=== PATIENT | male | born 1975 | race Caucasian/White ===

== ENCOUNTER 2017-10-24 07:45 | Emergency (ER) | payer OTHER, SELFPAY ==
[2017-10-24 07:46] VITALS: BP 131/103; PULSE 82; RESP 24; O2SAT 99; BMI 27.3
[2017-10-24 08:06] VITALS: BP 142/88; PULSE 63; RESP 20; O2SAT 99
[2017-10-24 08:15] LABS: Basophils % 0.3 % (0.1-2.0); Eosinophils # 0.1 K/mm3 (0.0-0.4); Eosinophils % 0.9 % (0.1-12.0); Hematocrit 49.6 % (42.0-52.0); Hemoglobin 16.6 g/dL (14.1-18.0); Lymphocytes # 1.8 K/mm3 (0.7-4.5); Mean Corpuscular HGB Conc 33.4 g/dL (31.8-35.4); Mean Corpuscular Hemoglobin 30.5 pg (27.0-31.2); Mean Corpuscular Volume 91.3 fl (80-94); Mean Platelet Volume 8.8 fl (7.4-10.4); Monocytes # 0.8 K/mm3 (0.1-1.0); Monocytes % 6.9 % (1.7-9.3); Neutrophils # 8.9 K/mm3 (1.8-7.8); Neutrophils % 76.8 % (37.0-80.0); Platelet Count 272 K/mm3 (142-424); Red Blood Count 5.44 M/mm3 (4.60-6.20); Red Cell Distribution Width 12.7 % (11.5-17.5); White Blood Count 11.6 K/mm3 (4.8-10.8)
[2017-10-24 08:30] VITALS: BP 139/98; PULSE 85; RESP 20; O2SAT 99
--- NOTE | 2017-10-24 08:34 | HMH.EDANX ---
ED Disposition Clinical Impression: Acute anxiety, Suicidal ideation Major depression Qualifiers: Major depression recurrence: single episode Active/Remission status: currently active Major depression episode severity: severe Psychotic features: with psychotic features Qualified Code(s): F32.3 - Major depressive disorder, single episode, severe with psychotic features Disposition: Xfer Psychiatric Hosp Condition on Discharge: Fair Instructions: Anxiety Disorders, Anxiety and Panic Attacks (Alternative Therapy), DI for Atypical Chest Pain, Yoga May Help Reduce Anxiety and Stress Referrals: Prince Prakash [Primary Care Provider] - Forms: Transfer Record - ED Time of Disposition: 11:17 - Critical Care Critical Care Time: No Attestation: On 10/24/17, the high probability of a clinically significant, sudden or life threatening deterioration of the following system(s) required my full and direct attention, intervention and personal management. The time I documented below is in addition to time spent performing reported procedures but includes the following listed in this critical care notation. Medical Decision Making - Medical Records Medical records reviewed: Yes: I reviewed the patient's medical records. Vital Signs: 10/24/17 07:46 10/24/17 08:06 10/24/17 08:30 Temperature Source Temporal Artery Scan Pulse Rate [Right Brachial] 82 63 85 Respiratory Rate 24 20 20 Blood Pressure [Right Arm] 131/103 142/88 139/98 Blood Pressure Mean [Right Arm] 112 106 111 Blood Pressure Source [Right Arm] Automatic Cuff Automatic Cuff Automatic Cuff Blood Pressure Position [Right Arm] Supine Supine Sitting 02 Sat by Pulse Oximetry 99 99 99 Oxygen Delivery Method Room Air Room Air Nasal Cannula Oxygen Flow Rate (LPM) 2 10/24/17 09:25 Temperature Source Pulse Rate [Right Brachial] 57 L Respiratory Rate 18 Blood Pressure [Right Arm] 125/96 Blood Pressure Mean [Right Arm] 105 Blood Pressure Source [Right Arm] Automatic Cuff Blood Pressure Position [Right Arm] Supine 02 Sat by Pulse Oximetry 98 Oxygen Delivery Method Room Air Oxygen Flow Rate (LPM) - Lab Data Lab Results 10/24/17 08:05: WBC 11.6 H, RBC 5.44, Hgb 16.6, Hct 49.6, MCV 91.3, MCH 30.5, MCHC 33.4, RDW 12.7, Plt Count 272, MPV 8.8, Neut % (Auto) 76.8, Lymph % (Auto) 15.0, [place] % (Auto) 6.9, Eos % (Auto) 0.9, Baso % (Auto) 0.3, Neut # (Auto) 8.9 H, Lymph # (Auto) 1.8, [place] # (Auto) 0.8, Eos # (Auto) 0.1, Baso # (Auto) 0.0 10/24/17 08:05: Sodium 139, Potassium 3.8, Chloride 102, Carbon Dioxide 26, Anion Gap 14.8, BUN 12, Creatinine 0.95, Estimated Creat Clear 115, Estimated GFR 87, Est GFR ( Amer) 106, Glucose 114 H, Calcium 8.7, Total Bilirubin 0.6, AST 19, ALT 45, Alkaline Phosphatase 94, Total Creatine Kinase 199, CK-MB (CK-2) 1.3, CK-MB (CK-2) Rel Index 0.7, Troponin I 0.02, Total Protein 8.2, Albumin 4.3, Globulin 3.9 H, Albumin/Globulin Ratio 1.1 10/24/17 08:05: Salicylates 1.1 L, Acetaminophen 0 L, Plasma/Serum Alcohol 0 10/24/17 09:35: Urine Color Yellow, Urine Appearance Clear, Urine pH 7.0, Ur Specific [place] 1.010, Urine Protein Negative, Urine Glucose (UA) Negative, Urine Ketones Negative, Urine Blood Negative, Urine Nitrate Negative, Urine Bilirubin Negative, Urine Urobilinogen 0.2, Ur Leukocyte Esterase Negative, Urine WBC Occasional, Amorphous Sediment 3+, Urine Bacteria 2+ 10/24/17 09:35: Urine Opiates Screen Negative, Ur Barbituates Screen Negative, Ur Phencyclidine Scrn Negative, Ur Amphetamines Screen Negative, U Methamphetamines Scrn Negative, U Benzodiazepines Scrn Negative, Urine Cocaine Screen Negative, U Marijuana (THC) Screen Positive H Result diagrams: 10/24/17 08:05 10/24/17 08:05 Orders (Tests/Meds): ORDERS Category Date Time Status Urine Culture Stat Micro 10/24/17 09:35 Received - ECG Data Tracing #1 I reviewed this ECG and interpreted as documented below: NSR and normal EKG ECG initial impression
[2017-10-24 08:37] LABS: Alanine Aminotransferase 45 U/L (12-78); Albumin Level 4.3 gm/dL (3.4-5.0); Albumin/Globulin Ratio 1.1 (1.1-1.8); Alkaline Phosphatase 94 U/L (46-116); Anion Gap 14.8 mEq/L (5-15); Aspartate Amino Transferase 19 U/L (15-37); Bilirubin,Total 0.6 mg/dL (0.2-1.0); Blood Urea Nitrogen 12 mg/dL (7-18); CKMB Relative Index 0.7 U/L (0-4.0); Calcium 8.7 mg/dL (8.5-10.1); Carbon Dioxide 26 mmol/L (21.0-32.0); Chloride 102 mmol/L (98-107); Creatine Kinase 199 U/L (39-308); Creatine Kinase MB 1.3 mg/ml (0.0-3.6); Creatinine Clearance Estimated 115 mL/min (0-300); Creatinine,Serum 0.95 mg/dL (0.70-1.30); Estimated Glomerular Filt Rate 87 ml/min (>60); GFR (African American) 106 ML/MIN (>60); Globulin 3.9 gm/dl (1.3-3.2); Glucose 114 mg/dL (74-106); Potassium 3.8 mmoL/L (3.5-5.1); Sodium 139 mmol/L (136-145); Total Protein,Serum 8.2 gm/dL (6.4-8.2); Troponin I 0.02 ng/ml (0.00-0.06)
--- NOTE | 2017-10-24 08:47 | ED_ITS ---
ED Disposition Clinical Impression: Acute anxiety, Suicidal ideation Major depression Qualifiers: Major depression recurrence: single episode Active/Remission status: currently active Major depression episode severity: severe Psychotic features: with psychotic features Qualified Code(s): F32.3 - Major depressive disorder, single episode, severe with psychotic features Disposition: Xfer Psychiatric Hosp Condition on Discharge: Fair Instructions: Anxiety Disorders, Anxiety and Panic Attacks (Alternative Therapy ), DI for Atypical Chest Pain, Yoga May Help Reduce Anxiety and Stress Referrals: Prince Prakash [Primary Care Provider] - Forms: Transfer Record - ED Time of Disposition: 11:17 - Critical Care Critical Care Time: No Attestation: On 10/24/17, the high probability of a clinically significant, sudden or life threatening deterioration of the following system(s) required my full and direct attention, intervention and personal management. The time I documented below is in addition to time spent performing reported procedures but includes the following listed in this critical care notation. Medical Decision Making - Medical Records Medical records reviewed: Yes: I reviewed the patient's medical records. Vital Signs: 10/24/17 07:46 10/24/17 08:06 10/24/17 08:30 Temperature Source Temporal Artery Scan Pulse Rate [Right Brachial] 82 63 85 Respiratory Rate 24 20 20 Blood Pressure [Right Arm] 131/103 142/88 139/98 Blood Pressure Mean [Right Arm] 112 106 111 Blood Pressure Source [Right Arm] Automatic Cuff Automatic Cuff Automatic Cuff Blood Pressure Position [Right Arm] Supine Supine Sitting 02 Sat by Pulse Oximetry 99 99 99 Oxygen Delivery Method Room Air Room Air Nasal Cannula Oxygen Flow Rate (LPM) 2 10/24/17 09:25 Temperature Source Pulse Rate [Right Brachial] 57 L Respiratory Rate 18 Blood Pressure [Right Arm] 125/96 Blood Pressure Mean [Right Arm] 105 Blood Pressure Source [Right Arm] Automatic Cuff Blood Pressure Position [Right Arm] Supine 02 Sat by Pulse Oximetry 98 Oxygen Delivery Method Room Air Oxygen Flow Rate (LPM) - Lab Data Lab Results 10/24/17 08:05: WBC 11.6 H, RBC 5.44, Hgb 16.6, Hct 49.6, MCV 91.3, MCH 30.5, MCHC 33.4, RDW 12.7, Plt Count 272, MPV 8.8, Neut % (Auto) 76.8, Lymph % (Auto) 15.0, [place] % (Auto) 6.9, Eos % (Auto) 0.9, Baso % (Auto) 0.3, Neut # (Auto) 8.9 H, Lymph # (Auto) 1.8, [place] # (Auto) 0.8, Eos # (Auto) 0.1, Baso # (Auto) 0.0 10/24/17 08:05: Sodium 139, Potassium 3.8, Chloride 102, Carbon Dioxide 26, Anion Gap 14.8, BUN 12, Creatinine 0.95, Estimated Creat Clear 115, Estimated GFR 87, Est GFR ( Amer) 106, Glucose 114 H, Calcium 8.7, Total Bilirubin 0.6, AST 19, ALT 45, Alkaline Phosphatase 94, Total Creatine Kinase 199, CK-MB ( CK-2) 1.3, CK-MB (CK-2) Rel Index 0.7, Troponin I 0.02, Total Protein 8.2, Albumin 4.3, Globulin 3.9 H, Albumin/Globulin Ratio 1.1 10/24/17 08:05: Salicylates 1.1 L, Acetaminophen 0 L, Plasma/Serum Alcohol 0 10/24/17 09:35: Urine Color Yellow, Urine Appearance Clear, Urine pH 7.0, Ur Specific [place] 1.010, Urine Protein Negative, Urine Glucose (UA) Negative, Urine Ketones Negative, Urine Blood Negative, Urine Nitrate Negative, Urine Bilirubin Negative, Urine Urobilinogen 0.2, Ur Leukocyte Esterase Negative, Urine WBC Occasional, Amorphous Sediment 3+, Urine Bacteria 2+ 10/24/17 09:35: Urine Opiates Screen Negative, Ur Barbituates
[2017-10-24 09:16] LABS: Salicylate 1.1 mg/dL (2.8-20.0)
[2017-10-24 09:24] LABS: Acetaminophen 0 ug/mL (10-30); Ethyl Alcohol 0 mg/dL (0-99)
[2017-10-24 09:25] VITALS: BP 125/96; PULSE 57; RESP 18; O2SAT 98
[2017-10-24 09:42] LABS: Microscopic, Urine URINE MICROSCOPIC (MICROSCOPIC)
[2017-10-24 09:44] LABS: Appearance,Urine CLEAR (Clear); Bilirubin,Urine Negative (Negative); Blood, Urine Negative (Negative); Color,Urine YELLOW (Yellow); Glucose,Urine (UA) Negative (Negative); Ketones,Urine Negative (Negative); Leukocyte Esterase,Urine Negative (Negative); Nitrate,Urine Negative (Negative); Protein,Urine Negative (Negative); Urobilinogen,Urine 0.2 EU/dl (0.2)
[2017-10-24 09:51] LABS: Amphetamine/Metha Screen,Urine Negative ng/mL (<1000); Barbiturates Screen,Urine Negative ng/mL (<200); Benzodiazepines Screen,Urine Negative ng/mL (200); Cannabinoid Screen,Urine Positive ng/mL (<50); Cocaine Screen,Urine Negative ng/g (<300); Methadone Screen,Urine Negative ng/mL (<300); Opiate Screen,Urine Negative ng/mL (<300); Phencyclidine Screen,Urine Negative ng/mL (<25)
[2017-10-24 09:52] LABS: Amorphous Sediment,Urine 3+ /lpf; Bacteria,Urine 2+ /lpf; WBC,Urine Occasional #/hpf (0-3)
--- NOTE | 2017-10-24 09:55 | PC.NURSE ---
Contacting the [facility] r/t transfer request per ER . Spoke with esthetician/spa coordinator, awaiting email for zoom assessment at this time.
--- NOTE | 2017-10-24 10:28 | PC.NURSE ---
Spoke with Silva at [facility] via Zoom assessment on Ipad at this time. Pt is now speaking with Silva via Ipad
--- NOTE | 2017-10-24 10:52 | PC.NURSE ---
Pt finished zoom assessment at this time, I spoke with Silva at this time, states she is going contact their facility psychiatrist r/t assessment on pt. Stated that she had notified pt that she is going to recommend that pt come their facility for evaluation.
--- NOTE | 2017-10-24 11:02 | PC.NURSE ---
Spoke with Silva again at this time, states pt is accepted to their facility in transfer per Dr. Douglas. I asked who to call report to Silva stated that we do not need to call report she will notify receiving staff at facility and give them report. Stated that pt would need to be transported per Ambulance or Police Department r/t pt being a risk to himself.
--- NOTE | 2017-10-24 12:14 | PC.NURSE ---
[facility]PT CALLED FOR TRANSPORT TO THE [facility]. UNABLE TO HAVE AN OFFICER HERE FOR TRANSPORT UNTIL AFTER [address] SWARTZ AND PATIENT INFORMED OF DELAY WELL THE [facility]. TO AWAIT TRANSPORT
[2017-10-24 13:29] VITALS: BP 124/86; PULSE 62; RESP 16; TEMP 37.1; O2SAT 97
== END 2017-10-24 13:31 ==
PROVIDERS: General Practice; Emergency Provider Emergency Medicine; PCP Family Medicine
DX: F41.8 Other specified anxiety disorders (principal); R45.851 Suicidal ideations; F32.3 Major depressive disorder, single episode, severe with psychotic features; Z63.8 Other specified problems related to primary support group; R41.0 Disorientation, unspecified; R07.9 Chest pain, unspecified; Z72.0 Tobacco use
CPT/HCPCS: 80053; 80305; 80329; 81001; 82550; 82553; 84484; 85025; 87086; 93005; 93041; 99285

== ENCOUNTER 2020-07-21 15:44 | Emergency (ER) | payer OTHER, SELFPAY ==
[2020-07-21 15:45] VITALS: BP 112/67; PULSE 56; RESP 12; TEMP 36.6; O2SAT 96; BMI 26.6
--- NOTE | 2020-07-21 15:52 | HMH.EDEYEP ---
ED Disposition Clinical Impression: Corneal foreign body Qualifiers: Encounter type: initial encounter Laterality: left Qualified Code(s): T15.02XA - Foreign body in cornea, left eye, initial encounter Corneal abrasion, left Qualifiers: Encounter type: initial encounter Qualified Code(s): S05.02XA - Injury of conjunctiva and corneal abrasion without foreign body, left eye, initial encounter Disposition: Home, Self-Care Condition on Discharge: Good Instructions: DI for Eye Pain Additional Instructions: Use the eyedrops you were provided as directed (1-2 drops q4hr to L eye). Follow-up with your quality supervisor or underwriting clerk on Friday. Return to the emergency department for worsening vision, increasing pain. Referrals: PCP,No [Primary Care Provider] - - Critical Care Critical Care Time: No Attestation: On 07/21/20, the high probability of a clinically significant, sudden or life threatening deterioration of the following system(s) required my full and direct attention, intervention and personal management. The time I documented below is in addition to time spent performing reported procedures but includes the following listed in this critical care notation. Medical Decision Making - Keith Inquiry Pt receiving controlled substance: No Keith was queried for this patient: No Vital Signs: 07/21/20 15:45 Temperature 97.8 F Temperature Source Temporal Artery Scan Pulse Rate [Right] 56 L Respiratory Rate 12 Blood Pressure [Right Arm] 112/67 Blood Pressure Mean [Right Arm] 82 02 Sat by Pulse Oximetry 96 Medical Decision Narrative: 45yo M evaluated for foreign body to the left eye. See procedure note for full details. Patient has a small corneal abrasion that was treated with antibiotics in the emergency department and he was instructed on proper antibiotic use at home. Patient encouraged to follow-up with optometry/ophthalmology on Friday. He agrees with the plan and voiced understanding. Eye Problem HPI - General Stated complaint: FB L eye Time Seen by Provider: 07/21/20 15:52 Source of Information: Patient - History of Present Illness HPI Narrative: 45yo M without significant past medical history is evaluated emergency department secondary to a foreign body in his left eye. 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 States he has had numerous episodes similar to this. Attempted to irrigate his eye at work but was unsuccessful in removing the foreign body. Denies any other acute injury. Does not wear glasses or contacts. - Related Data Home Medications Medication Instructions Recorded Confirmed No Known Home Medications 10/24/17 10/24/17 Allergies Allergy/AdvReac Type Severity Reaction Status Date / Time No Known Allergies Allergy Verified 10/24/17 07:57 [facility] History - Hepatitis A Screen Attestation statement:: This patient has been screened for Hepatitis A risk factors. Medical History: Denies:: Cancer, Diabetes Mellitus Type 1, Diabetes Mellitus Type 2, MRSA Amputation: No Fractures: No - Social History Smoking Status: Current every day smoker Tobacco Type: cigarettes Alcohol Intake: never ROS Obtained: Yes All systems reviewed & no additional complaints Physical Exam - General General appearance: alert, in no apparent distress - Head Head exam: atraumatic, normocephalic, normal inspection - Expanded Eye Exam Eyelids: left: erythema, bilateral: normal inspection Pupils: Bilateral: regular, round Sclera/Conjunctival: left: injection Anterior chamber: bilateral: normal inspection Posterior chamber: bilateral: deferred Comment: Small, metallic foreign body appreciated to the medial aspect of the left cornea. After foreign body was removed, fluorescein stain was completed. Punctate lesion to the medial cornea at approximately 9 o'clock position. - ENT ENT exam: Present: normal exam - Neck Neck exam: Present: normal inspection, full ROM, trachea midlin
--- NOTE | 2020-07-21 16:54 | PC.NURSE ---
Went to discharge patient to find patient was no where to be found.
[2020-07-21 16:55] VITALS: BP 112/67; PULSE 56; RESP 12; TEMP 36.6; O2SAT 96
== END 2020-07-21 16:56 | disposition home or self-care (01) ==
PROVIDERS: Emergency Provider Family Medicine
DX: T15.02XA Foreign body in cornea, left eye, initial encounter (principal); S05.02XA Injury of conjunctiva and corneal abrasion without foreign body, left eye, initial encounter; F17.210 Nicotine dependence, cigarettes, uncomplicated; W45.8XXA Other foreign body or object entering through skin, initial encounter; Y92.69 Other specified industrial and construction area as the place of occurrence of the external cause; Y99.0 Civilian activity done for income or pay
CPT/HCPCS: 65220; 99282

== ENCOUNTER 2021-07-18 13:34 | Emergency (ER) | payer OTHER, SELFPAY ==
[2021-07-18 13:50] VITALS: BP 143/81; PULSE 67; RESP 16; TEMP 36.7; O2SAT 96; BMI 26.6
--- NOTE | 2021-07-18 14:35 | HMH.EDUTC ---
[facility] [place] Clinical Impression: Sciatica Qualifiers: Laterality: right Qualified Code(s): M54.31 - Sciatica, right side Disposition: Home Health Service Condition on Discharge: Good Instructions: DI for Sciatica Additional Instructions: Go home and rest. It would be best if you rested tomorrow too. No heavy lifting. No twisting. Take the oral medications as directed. The muscle relaxer (cyclobenzaprine--Flexeril) will make you drowsy, so don't drive or operate heavy machinery after taking it. Don't start the oral steroids (medrol dose pack) until tomorrow, since you had the shots in here today. Follow up with your regular doctor. GO TO THE ER FOR ANY WORSENING SYMPTOMS OR CONCERN, ESPECIALLY BOWEL OR BLADDER ISSUES, SADDLE AREA NUMBNESS, FEVER, ETC Prescriptions: Cyclobenzaprine HCl [Cyclobenzaprine 10mg Tab] 10 mg PO BIDP PRN #30 tab PRN Reason: Muscle Spasm Transmission Status: Received by [facility] #[id number] methylPREDNISolone [Medrol] 4 mg PO DIRECTED 6 Days #21 packet Transmission Status: Received by [facility] #[id number] Referrals: Provider,Referral, MD [Primary Care Provider] - Time of Disposition: 15:25 Medical Decision Making - Medical Records Medical records reviewed: No: I reviewed the patient's medical records. - Keith Inquiry Pt receiving controlled substance: No Vital Signs: 07/18/21 13:50 07/18/21 15:02 Temperature 98.1 F 98.1 F Temperature Source Oral Pulse Rate 67 Pulse Rate [Left] 67 Respiratory Rate 16 16 Blood Pressure 143/81 H Blood Pressure [Right Arm] 143/81 H Blood Pressure Mean [Right Arm] 101 02 Sat by Pulse Oximetry 96 - Lab Data Lab results reviewed: Yes: I reviewed the patient's lab results. Orders (Tests/Meds): ED MEDICATIONS Discontinued Medications Generic Name Dose Route Start Last Admin Trade Name Freq PRN Reason Stop Dose Admin Ketorolac Tromethamine 60 mg 07/18/21 14:47 07/18/21 14:57 Ketorolac 60mg/2ml Vial IM 07/18/21 14:48 60 mg ONCE ONE Administration Methylprednisolone Sodium Succinate 125 mg 07/18/21 14:47 07/18/21 14:56 Methylprednisolone Sod Succ 125mg Vial IM 07/18/21 14:48 125 mg ONCE ONE Administration [facility] [place] - General Stated complaint: sciatica pain Time Seen by Provider: 07/18/21 14:35 Mode of Arrival: Ambulatory Source of Information: Patient Limitations: No Limitations Description of Symptoms (Recalled from Triage Doc. by RN): pt c/o of sciatica pain. pt states five yrs ago pt was at the chiropractor when the DrDc broke his L4 while on the table. pt had surgery. however, the past week the pain has been keeping him up at night. HEENT Symptoms (Recalled from RN notes): No Resp Symptoms (Recalled from RN notes): No Skin Symptoms (Recalled from RN notes): No MS Symptoms (Recalled from RN notes): Yes Functional Status (Recalled from RN notes): wnl - History of Present Illness Provider Complaint: He states that he has had low back pain that radiates down his right leg. He has had episodes of this in the past. He denies any recent injury, fall or other injuries. Onset (ago): day(s) - Related Data Previous Rx's Medication Instructions Recorded acyclovir 800 mg tablet 800 mg PO 5XD 7 Days #35 tab 03/08/21 triamcinolone acetonide 0.5 % 1 applic TOPICAL BID PRN #15 g 03/08/21 topical cream Cyclobenzaprine HCl 10 mg PO BIDP PRN #30 tab 07/18/21 [Cyclobenzaprine 10mg Tab] methylPREDNISolone [Medrol] 4 mg PO DIRECTED 6 Days #21 07/18/21 packet Allergies Allergy/AdvReac Type Severity Reaction Status Date / Time No Known Allergies Allergy Verified 03/08/21 18:28 - Worker's Comp Is this a Worker's Comp case?: No [facility] History - Hepatitis A Screen Drug use history?: No High risk sexual behaviors?: No History of sexually transmitted infection?: No Currently employed?: No Childcare worker?: No Do you have indoor plumbing?: Yes Do y
[2021-07-18 15:02] VITALS: BP 143/81; PULSE 67; RESP 16; TEMP 36.7
== END 2021-07-18 15:43 | disposition home health service (06) ==
PROVIDERS: Emergency Provider Nurse Practitioner Family
DX: M54.31 Sciatica, right side (principal); F17.210 Nicotine dependence, cigarettes, uncomplicated
CPT/HCPCS: 96372; 99202; G0463

== ENCOUNTER → 2021-08-10 10:25 | Outpatient (CLI) | payer OTHER, SELFPAY ==
--- NOTE | 2021-08-10 10:30 | MR_ITS ---
PROCEDURE: MR LUMBAR SPINE WO CON CLINICAL INDICATION: DDD Degenerative disc disease, chronic pain COMPARISON: No exams were available for comparison TECHNIQUE: Standard multiplanar multiecho sequences are performed without contrast. 3-D MIP and myelographic images are also rendered and reviewed FINDINGS: Normal alignment. Spinal cord ends at the T12-L1 level. T12-L1: Degenerative disc disease with mild bulging disc. L1-L2: Degenerative disc disease with concentric bulging disc and small central disc protrusion along with facet and ligamentum hypertrophy with bilateral lateral recess narrowing and bilateral foraminal narrowing left greater than right. Canal stenosis is present at this level at 9 mm. Type 1 endplate changes posteriorly L2-L3: Degenerative disc disease with bulging disc which is eccentric toward the right. There is a small right paracentral disc herniation with minimal inferior extrusion. There is severe right lateral recess narrowing and moderate bilateral foraminal narrowing. Facet and ligamentum hypertrophy is noted. There is canal stenosis at 10 mm. Anterior osteophytes with anterior bulging disc also noted. L3-L4: Degenerative disc disease with circumferential bulging disc along with facet and ligamentum hypertrophy with moderate to severe bilateral foraminal narrowing. There is a small central disc protrusion. L4-5: Degenerative disc disease with concentric bulging disc along with facet and ligamentum hypertrophy with canal stenosis, bilateral lateral recess narrowing, and severe right foraminal narrowing and moderate left foraminal narrowing. L5-S1: Mild degenerative disc disease with minimal bulging disc along with facet and ligamentum hypertrophy and mild bilateral foraminal narrowing. 3 cm left renal cyst. IMPRESSION: Abnormal MRI of the lumbar spine with multilevel lumbar spondylosis with bulging discs, disc protrusions, as well as a herniated disc in the right paracentral region at L2-L3. There is resultant varying degrees lateral recess and foraminal narrowing and canal stenosis. Please see above for detailed description at each level. Dictated by: Chris Hernández MD 08/13/2021 09:16 Chris Hernández MD in [place] 08/13/2021 09:16
== END ==
PROVIDERS: PCP Family Medicine; Visit Provider Family Medicine
DX: M51.36 Other intervertebral disc degeneration, lumbar region (principal)
CPT/HCPCS: 72148; 76376

== ENCOUNTER → 2021-11-01 08:44 | Outpatient (POV) | payer OTHER, SELFPAY ==
[2021-11-01 08:58] VITALS: BP 138/85; PULSE 61; RESP 20; TEMP 36.8; O2SAT 96; BMI 26.5
--- NOTE | 2021-11-01 11:31 | HMH.PMCON ---
Assessment and Plan (1) Degenerative disc disease, lumbar Status: Acute Category: Medical Code(s): M51.36 - Other intervertebral disc degeneration, lumbar region (2) Spinal stenosis of lumbar region with neurogenic claudication Status: Acute Category: Medical Code(s): M48.062 - Spinal stenosis, lumbar region with neurogenic claudication (3) Lumbar radiculopathy Status: Acute Category: Medical Code(s): M54.16 - Radiculopathy, lumbar region (4) Restless leg syndrome Status: Acute Category: Medical Code(s): G25.81 - Restless legs syndrome (5) Spondylosis Status: Acute Category: Medical Code(s): M47.9 - Spondylosis, unspecified (6) Status post discectomy Status: Acute Category: Surgical Code(s): Z98.890 - Other specified postprocedural states (7) Postlaminectomy syndrome Status: Acute Category: Medical Code(s): M96.1 - Postlaminectomy syndrome, not elsewhere classified - Assessment and plan all Dx Assessment and Plan for all problems:: Ordering Physician: Bean Prakash MD Date of Service: 08/10/21 Procedure(s): MR lumbar spine wo con Accession Number(s): [id number] cc: Chris Hernádnez MD; Bean Prakash MD~ PROCEDURE: MR LUMBAR SPINE WO CON CLINICAL INDICATION: DDD Degenerative disc disease, chronic pain COMPARISON: No exams were available for comparison TECHNIQUE: Standard multiplanar multiecho sequences are performed without contrast. 3-D MIP and myelographic images are also rendered and reviewed FINDINGS: Normal alignment. Spinal cord ends at the T12-L1 level. T12-L1: Degenerative disc disease with mild bulging disc. L1-L2: Degenerative disc disease with concentric bulging disc and small central disc protrusion along with facet and ligamentum hypertrophy with bilateral lateral recess narrowing and bilateral foraminal narrowing left greater than right. Canal stenosis is present at this level at 9 mm. Type 1 endplate changes posteriorly L2-L3: Degenerative disc disease with bulging disc which is eccentric toward the right. There is a small right paracentral disc herniation with minimal inferior extrusion. There is severe right lateral recess narrowing and moderate bilateral foraminal narrowing. Facet and ligamentum hypertrophy is noted. There is canal stenosis at 10 mm. Anterior osteophytes with anterior bulging disc also noted. L3-L4: Degenerative disc disease with circumferential bulging disc along with facet and ligamentum hypertrophy with moderate to severe bilateral foraminal narrowing. There is a small central disc protrusion. L4-5: Degenerative disc disease with concentric bulging disc along with facet and ligamentum hypertrophy with canal stenosis, bilateral lateral recess narrowing, and severe right foraminal narrowing and moderate left foraminal narrowing. L5-S1: Mild degenerative disc disease with minimal bulging disc along with facet and ligamentum hypertrophy and mild bilateral foraminal narrowing. 3 cm left renal cyst. IMPRESSION: Abnormal MRI of the lumbar spine with multilevel lumbar spondylosis with bulging discs, disc protrusions, as well as a herniated disc in the right paracentral region at L2-L3. There is resultant varying degrees lateral recess and foraminal narrowing and canal stenosis. Please see above for detailed description at each level. Dictated by: Chris Hernández MD 08/13/2021 09:16 Chris Hernández MD in [place] 08/13/2021 09:16 Patient is a pleasant 46-year-old male who presents today with worsening low back pain that radiates to his right leg pain. Patient states that he is sometimes woken up at night with his right leg moving on its own. Patient is currently taking tramadol and sulindac to manage his pain. He had back surgeries about 5 years ago that was done by Dr. Thomson at . I will schedule the patient for a lumbar epidural steroid injection. Patient is not on any blood thinners. Risks and benefits of
== END ==
PROVIDERS: Visit Provider Student in an Organized Health Care Education/Training Program
DX: M51.16 Intervertebral disc disorders with radiculopathy, lumbar region (principal); M48.062 Spinal stenosis, lumbar region with neurogenic claudication; G25.81 Restless legs syndrome; M47.9 Spondylosis, unspecified; M96.1 Postlaminectomy syndrome, not elsewhere classified; Z98.890 Other specified postprocedural states
CPT/HCPCS: 99202; G0463

== ENCOUNTER → 2022-03-13 16:19 | Outpatient (CLI) | payer OTHER, SELFPAY ==
--- NOTE | 2022-03-13 16:29 | XR_ITS ---
PROCEDURE INFORMATION: Exam: XR Chest Exam date and time: 03/13/2022 4:39 PM Age: 46 years old Clinical indication: Shortness of breath; Additional info: Covid TECHNIQUE: Imaging protocol: Radiologic exam of the chest. Views: 1 view. COMPARISON: No relevant prior studies available. FINDINGS: Airway: Patent Lungs: Unremarkable. No consolidation. Pleural spaces: Unremarkable. No pleural effusion. No pneumothorax. Heart/Mediastinum: Unremarkable. No cardiomegaly. Bones/joints: No acute skeletal abnormality or aggressive osseous lesion. IMPRESSION: No acute findings.
[2022-03-13 17:03] LABS: Basophils # 0.1 K/mm3 (0-0.2); Basophils % 0.4 % (0.1-2.0); Eosinophils # 0.1 K/mm3 (0.0-0.4); Eosinophils % 0.7 % (0.1-12.0); Hematocrit 46.9 % (42.0-52.0); Hemoglobin 16.3 g/dL (14.1-18.0); Lymphocytes # 0.8 K/mm3 (0.7-4.5); Lymphocytes % 7.8 % (10-50); Mean Corpuscular HGB Conc 34.8 g/dL (31.8-35.4); Mean Corpuscular Hemoglobin 31.2 pg (27.0-31.2); Mean Corpuscular Volume 89.7 fl (80-94); Mean Platelet Volume 8.8 fl (7.4-10.4); Monocytes # 1.1 K/mm3 (0.1-1.0); Monocytes % 10.4 % (1.7-9.3); Neutrophils # 8.6 K/mm3 (1.8-7.8); Neutrophils % 80.6 % (37.0-80.0); Platelet Count 214 K/mm3 (142-424); Red Blood Count 5.23 M/mm3 (4.60-6.20); Red Cell Distribution Width 13.1 % (11.5-17.5); White Blood Count 10.7 K/mm3 (4.8-10.8)
== END ==
PROVIDERS: PCP Family Medicine; Visit Provider Family Medicine
DX: U07.1 COVID-19 (principal)
CPT/HCPCS: 36415; 71045; 85025; C9803; U0003; U0005

== ENCOUNTER 2023-11-13 09:21 | Emergency (ER) | payer OTHER, SELFPAY ==
[2023-11-13 09:45] VITALS: BP 123/73; PULSE 76; RESP 19; TEMP 36.7; O2SAT 98; BMI 27.3
--- NOTE | 2023-11-13 10:24 | EXP.UTC ---
Discharge Plan Disposition Patient Disposition: Home, Self-Care Condition: Good Prescriptions Prescriptions: New cyclobenzaprine 10 mg tablet 10 mg PO TID PRN (Reason: muscle spasm) Qty: 9 0RF methylprednisolone [Medrol (Len)] 4 mg tablets,dose pack See Rx Instructions .Route .COMPLEX 6 Days Qty: 21 0RF Rx Instructions: taper pack; No Action sulindac 200 MG tablet 200 mg PO BID quetiapine 100 mg tablet 100 mg PO DAILY Patient Comments: TAKE 1 TABLET BY MOUTH EVERY DAY AT BEDTIME Referrals Follow up/Referrals: Bean Prakash MD [Primary Care Provider] - See instructions Activity Restrictions/Add. Instructions Additional Instructions/Restrictions: . You can still take Tylenol every 4 hours as needed if you need something else for pain *Ice 20 minutes every 2 hours for the first 48 hours after the initial injury followed by moist heat every 20 minutes 3-4 times a day to affected area *Muscle relaxer every 8 hours as needed for muscle spasms but remember, it WILL cause drowsiness You cannot take it and drive, operate machinery or care for small children. *Keep this area active, no movement leads to more stiffness, However take it easy and avoid heavy lifting pushing or pulling *Follow up with you family doctor if no improvement for further treatment Start Medrol dose pack this will help with muscle pain Clinical Impressions Clinical Impression: Muscle spasm Instructions Patient Instructions: DI for Muscle Spasm Discharge ED Provider: Piedad Manzanares [facility] General Stated complaint: pain in upper left back and shoulder Mode of Arrival: Ambulatory Source of Information: Patient Limitations: No Limitations Time Seen by Provider: 11/13/23 10:24 Description of Symptoms (Recalled from Triage Doc. by RN): PATIENT C/O SPASM TO LEFT SHOULDER BLADE THAT RADIATES INTO RIB CAGE X 2 DAYS. 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 his body up States that for the last couple of days he has been having muscle spasms in his left shoulder blade area and left side of neck that when it spasms up takes his breath States that his has tried to massage it out but hasnt helped so he came in to see if he could get something to help Related Data Home Medications Medication Instructions Recorded Confirmed sulindac 200 mg tablet 200 mg PO BID Pain 11/01/21 11/13/23 quetiapine 100 mg tablet 100 mg PO DAILY 11/13/23 11/13/23 Previous Rx's Medication Instructions Recorded cyclobenzaprine 10 mg tablet 10 mg PO TID PRN muscle spasm #9 11/13/23 tabs methylprednisolone 4 mg tablets in See Rx Instructions .Route 11/13/23 a dose pack (Medrol (Len)) .COMPLEX 6 days #21 tabs Allergies Allergy/AdvReac Type Severity Reaction Status Date / Time gabapentin AdvReac Other Verified 11/01/21 09:04 Worker's Comp Is this a Worker's Comp case?: No [facility] Disclaimer: The information contained in this section may have been updated after the patient was seen, as this information can be updated by other users. Surgical History (Updated 11/13/23 @ 09:51 by Cindy Lambert RN) History of back surgery Social History Smoking Status: Current every day smoker tobacco type: cigarettes packs per day: 1 alcohol intake: never current occupational status: other Travel in the last 8 weeks: None household members: spouse housing: house ROS Obtained: Yes All systems reviewed & no additional complaints except as documented and Yes Systems reviewed as appropriate & no additional complaints except as documented Constitutional Constitutional: Reports system reviewed and no additional complaints, except as documented and Reports as per HPI ENT Ears, Nose, Mouth, and Throat: Reports system reviewed and no additional complaints, except as documented and Reports as per HPI Cardiovascular Cardiovascular: Reports system reviewed and no additional complaints, except as documented and Reports as per HPI Respiratory Respiratory: Reports system reviewed and no additional complaints, except as documented and Reports as per HPI Gastrointestinal Gastrointestingal: Reports system reviewed and no additional complaints, except as documented and as per HPI Musculoskeletal Musculoskeletal: Reports system reviewed and no additional complaints, except as documented, Reports as per HPI and Reports back pain Comments: left shoulder spasms Physical Exam General General appearance: alert and in no apparent distress ENT ENT exam: Present mucous membranes moist Chest Chest inspection: Present normal inspection and symmetric chest wall rise Respiratory Respiratory exam: Present normal lung sounds bilaterally; Absent respiratory distress or wheezes Cardiovascular Cardiovascular exam: Present regular rate, normal rhythm and normal heart sounds Back Exam Back exam: Present tenderness and muscle spasm Back 1 view image: 1. muscle spasm noted tenderness with palpation Neurological Exam Neurological exam: Present alert, oriented X3 and normal gait Medical Decision Making Keith Inquiry Pt receiving controlled substance: No Keith was queried for this patient: No Vital Signs: 11/13/23 09:45 Temperature 98.1 F Temperature Source Oral Pulse Rate [Right Brachial] 76 Respiratory Rate 19 Blood Pressure [Right Arm] 123/73 Blood Pressure Mean [Right Arm] 89 Blood Pressure Source [Right Arm] Automatic Cuff Blood Pressure Position [Right Arm] Sitting 02 Sat by Pulse Oximetry 98 Oxygen Delivery Method Room Air
[2023-11-13 10:41] VITALS: BP 123/73; PULSE 76; RESP 19; TEMP 36.7; O2SAT 98
== END 2023-11-13 10:44 | disposition home or self-care (01) ==
PROVIDERS: Emergency Provider Nurse Practitioner; PCP Family Medicine
DX: M25.512 Pain in left shoulder (principal); M54.2 Cervicalgia; M62.838 Other muscle spasm; F17.210 Nicotine dependence, cigarettes, uncomplicated
CPT/HCPCS: 99212; 99214; G0463

== ENCOUNTER 2024-03-02 10:23 | Day surgery (SDC) | payer OTHER, SELFPAY ==
[2024-02-24 09:51] VITALS: BMI 27.3
[2024-03-02] VITALS (7 sets, daily range): BP systolic 99–126; BP diastolic 54–72; PULSE 41–57; RESP 18; TEMP 36.2–36.6; O2SAT 92–100; BMI 27.3
--- NOTE | 2024-03-02 11:04 | ECG_ITS ---
APPROVED REPORT Exam: Resting ECG HR:39 bpm ECG Measurements Heart Rate 39 AXES AL 161 P 6 QRSd 90 QRS 15 QT 490 T 38 QTc 418 Conclusion SINUS BRADYCARDIA CRITICAL TEST RESULT UNCONFIRMED REPORT Electronically signed by : Christian Zapata MD 03/03/2024 08:32:12
[2024-03-02] MEDS: LACTATED RINGERS 1000ML 1,000 ML 25 ML IV (11:05)
--- NOTE | 2024-03-02 11:16 | P.PNANES_ITS ---
[facility] Disclaimer: The information contained in this section may have been updated after the patient was seen, as this information can be updated by other users. Medical History No significant past medical history Surgical History History of back surgery Family History Other No significant family history Social History (Updated 03/02/24 @ 11:00 by Elva Torrez RN) Smoking Status: Current every day smoker tobacco type: cigarettes packs per day: 1 alcohol intake: never substance use type: denies use current occupational status: other Travel in the last 8 weeks: None household members: spouse housing: house caffeine: Yes [facility] Anesthesia Checklist Patient Identification Patient Identification: Arm Band Structural Data Admitted From: Home Planned Operative Procedure/s: Colonoscopy Consent for Planned Operative Procedure(s) Verified: Yes Verified Documents: Surgical Consent and History and Physical NPO Status Verified Time NPO: 00:00 Additional verifications Anesthesia Reactions: No Airway Assessment Mallampati Score:: Class II C-Spine Mobility Assessed: Yes TMJ Mobility Assessed: Yes Dentition: Poor Dentition Neurological Assessment Level of Consciousness: Awake, Alert and Appropriate Anesthesia Plan Anesthesia Risk discussed: Yes Anesthesia Plan: Verified ASA Class: II Anesthesia Type: General
--- NOTE | 2024-03-02 12:12 | HMH.SCOPE ---
Procedure: Date: 03/02/24 Patient Date of :: 1975 Procedure Performed:: Colonoscopy Indications:: Positive Cologuard Performing Provider:: Jan Pendleton MD Referring Provider:: . Sedation:: Monitored anesthesia care Procedure:: After informed consent was obtained the patient was taken to the endoscopy suite. Sedation ensued after the patient was transferred to the left lateral decubitus position. Pulse, blood pressure, and oxygen saturation were monitored throughout the procedure. Digital rectal exam revealed no significant abnormality. The colonoscope was placed in position. The entire colon was evaluated. The colonoscope was carefully removed and the patient was transferred to recovery in stable condition. Please see findings and specimens below for detail. Findings:: Bowel preparation moderate Moderate spasticity Moderate lack of relaxation Slight prostatic enlargement Scattered sigmoid diverticulosis Specimens:: None Recommendations:: Consider barium enema secondary to recent positive Cologuard without definitive etiology noted colonoscopically Timing of repeat colonoscopy pending results of barium enema but will likely be around 3-5 years secondary to moderate prep, spasticity, and lack of relaxation. Complications:: No immediate Estimated blood obtained (mL): 0 Colonoscopy Component Colonoscopy Component Was a colonoscopy performed during today's procedure?: Yes Recommended follow up colonoscopy of at least 10 years?: No If no, follow up colonoscopy recommended in ___ years?: (See above) Reason for not recommending >/= 10 yr follow-up interval?: (See above)
== END 2024-03-02 13:30 | disposition home or self-care (01) ==
PROVIDERS: PCP Family Medicine; Visit Provider Surgery
PROC: 0DJD8ZZ Inspection of Lower Intestinal Tract, Via Natural or Artificial Opening Endoscopic (ICD-10-PCS; CPT 45378; principal; 2024-03-02 11:30)
DX: Z12.11 Encounter for screening for malignant neoplasm of colon (principal); R19.5 Other fecal abnormalities; K57.30 Diverticulosis of large intestine without perforation or abscess without bleeding
CPT/HCPCS: 45378; 93005; J7120

== ENCOUNTER 2024-10-07 09:43 | Outpatient (CLI) | payer OTHER, SELFPAY ==
--- NOTE | 2024-10-07 09:47 | XR_ITS ---
FINAL REPORT CLINICAL HISTORY: .knot on 1st metacarpal, where pen is pointing; Can't move his thumb, since July no known injury FINDINGS: Four views show no evidence of acute displaced fracture or dislocation of the visualized bony architecture. The joint spaces appear normal. IMPRESSION: Unremarkable exam. Reviewed, Interpreted and Dictated by Bean Birch MD Transcribed by Luz Elena Armstrong Authenticated and [facility]
--- NOTE | 2024-10-07 09:48 | XR_ITS ---
FINAL REPORT CLINICAL HISTORY: PAIN OF LEFT THUMB FINDINGS: Three views show no evidence of an acute, displaced fracture or dislocation of the visualized bony architecture. There are minimal degenerative changes of the radiocarpal joint. Positive ulnar variance is identified. IMPRESSION: No acute process. Reviewed, Interpreted and Dictated by Bean Birch MD Transcribed by Luz Elena Armstrong Authenticated and [facility]
== END 2024-10-07 23:59 | disposition home or self-care (01) ==
LOC: RAD 09:44
PROVIDERS: PCP Family Medicine; Visit Provider Family Medicine
DX: M79.645 Pain in left finger(s) (principal)
CPT/HCPCS: 73110; 73130

== ENCOUNTER 2024-11-02 12:53 | Outpatient (CLI) | payer OTHER, SELFPAY ==
--- NOTE | 2024-11-02 13:00 | XR_ITS ---
FINAL REPORT CLINICAL HISTORY: PRIOR HX METAL IN BOTH EYES. CLEARANCE FOR MRI FINDINGS: ORBITS Look up and look down views were obtained. No fracture is identified. The sinuses are clear. No foreign body is identified. IMPRESSION: No acute process. Reviewed, Interpreted and Dictated by Marcos Tenorio MD Transcribed by Dora Castaneda Authenticated and [facility]
== END 2024-11-02 23:59 | disposition home or self-care (01) ==
LOC: RAD 12:54
PROVIDERS: PCP Family Medicine; Visit Provider Physician Assistant
DX: Z01.818 Encounter for other preprocedural examination (principal)
CPT/HCPCS: 70200

== ENCOUNTER 2024-11-09 06:54 | Outpatient (CLI) | payer OTHER, SELFPAY ==
--- NOTE | 2024-11-09 06:55 | MR_ITS ---
FINAL REPORT TECHNIQUE: Multiplanar MR imaging of the left hand was obtained without contrast. CLINICAL HISTORY: Lt Hand Pain. UNABLE TO MOVE THUMB FINDINGS: Osseous structures demonstrate no evidence of fracture or significant marrow edema. Tendons are normal. Collateral ligaments are normal. There is no surrounding mass or edema. IMPRESSION: Unremarkable exam without findings to account for limited range of motion. Reviewed, Interpreted and Dictated by Bean Birch MD Transcribed by Dora Castaneda Authenticated and [facility]
== END 2024-11-09 23:59 | disposition home or self-care (01) ==
LOC: RAD 06:55
PROVIDERS: PCP Family Medicine; Visit Provider Physician Assistant
DX: M79.642 Pain in left hand (principal); S66.902A Unspecified injury of unspecified muscle, fascia and tendon at wrist and hand level, left hand, initial encounter
CPT/HCPCS: 73218

== ENCOUNTER 2025-04-25 19:40 | Emergency (ER) | payer OTHER, SELFPAY ==
--- OUTSIDE RECORDS SUMMARY | 2024-01-09 07:00 | XMS_ITS ---
[facility] Address [address] [place] [id number] Care Team Providers Care Boat Tender Name Role Phone Tad Panda Primary Care Provider [phone] Katya Prakash Unavailable [phone] Allergies No Known Allergies Reason For Referral Reason POSITIVE COLOGUARD Diagnosis 1 Positive colorectal cancer screening using Cologuard test (R19.5) [facility] Referring Provider First Name Katya Olea Referring Provider Last Name Dwain Referring Provider Speciality Family Pra ctice Referred Provider SOFIA VALENTINE Referred Provider Specialty General Surg sebastian General Notes Eugenia Santos 01/09/20 1:55:48 PM > ELLEN in [place]'s office has left for the day; instructed to call back on FridayDanielle Brynn 01/12/2024 11:16:33 AM > [facility] to call me backDanielle Brynn 01/13/2024 1:12:03 PM > [facility] 02/24/2024; preop will call with time; patient [address] [place] [id number] 01/09/2024 Katya Prakash Positive colorectal cancer screening using Cologuard test R19.5 Assessments Encounter Date Diagnosis (ICD Code) Assessment Notes Treatment Notes Treatment Clinical Notes Section Notes 01/09/2024 Positive colorectal cancer screening using Cologuard test (ICD-10 - R19.5) Plan Of Treatment Referrals Referral Date Details 01/09/2024 01/09/2024, POSITIVE COLOGUARD, SOFIA VALENTINE Next Appt Details Follow Up: 2 Months, Reason: Progress Notes * MARIIA RHODESDOB:[birth year] (49 yo M)Acc No.[id number]:01/09/2024 Progress Notes Patient: MARIIA POLO Provider: Katya Prakash M.D. :1975 A ge:48 Y S ex:Male Date:01/09/2024 Address:[address] [place] [address] [id number] Pcp:Tad Panda Subjective: * Chief Complaints: * [...] * Images: Billing Information: * Visit Code: 24096 Office Visit, Est Pt., Level 3. * Procedure Codes: * Electronic signature of Katya Prakash MD on 04/25/2025 at 07:53 PM EDT Sign off status: Pending * Provider: Katya Prakash M.D. Date: 01/09/2024 Generated for Printi ng/Amy/Bernardinosmitting on: 0 04/25/2025 07:53 PM EDT History and Physical Notes * HPI (History [...]
--- OUTSIDE RECORDS SUMMARY | 2024-04-29 12:00 | XMS_ITS ---
Author Organization [facility] Address [address] [facility] [address] [place] [phone] Care Team Providers Care Middle Card Tender Name Role Phone Tad Panda Primary Care Provider Katya Prakash [phone] REASON FOR VISIT 2 mos checkup, Needs labs with PSA Encounters Encounter Location Date Provider Diagnosis [facility] [address] [facility] [address] [place] [id number] 04/29/2024 Katya Prakash Plan Of Treatment No Information Progress Notes * MARIIA RHODESDOB:[birth year] (49 yo M)Acc No.[id number]:04/29/2024 Progress Notes Patient: MARIIA POLO Provider: Katya Prakash M.D. :1975 A ge:48 Y S ex:Male Date:04/29/2024 Address:[address] [facility] [place], [id number] Pcp:Tad Panda Subjective: * Chief Complaints: * 1 . 2 mos checkup. 2. Needs labs with PSA. * Medical History: Objective: * Vitals: Assessment: Plan: * Treatment: * Images: Billing Information: * Visit Code: * Procedure Codes: * Electronic signature of Katya Prakash MD on 04/25/2025 at 07:52 PM EDT Sign off status: Pending * Provider: Katya Prakash M.D. Date: 0 04/29/2024 Generated for Ольга moore/Amy/Abdiitting on: 0 04/25/2025 07:52 PM EDT
--- OUTSIDE RECORDS SUMMARY | 2024-07-30 12:15 | XMS_ITS ---
Author Organization [facility] Address [address] [place] [id number] Care Team Providers Care Thread Cutter Name Role Phone Tad Panda Primary Care [...] tenosynovit is of thumb (M65.949) [facility] Referring Provider First Name Tad Referring Provider Last Name Farzad Referring Provider Speciality Family [facility] ctice Referred Provider Ariel Stovall Referred Provider [...] [address] [place] [phone] 07/30/2024 Tad [place] Pain of left thumb M79.645 and Extensor [...] * MARIIA RHODESDOB:[birth year] (49 yo M)Acc No.[id number]:07/30/2024 Progress Notes Patient: MARIIA POLO Provider: Micheline Panda M.D. :1975 A ge:49 Y S ex:Male Date:07/30/2024 Address:[address] [place] [address] [place] Subjective: * Chief Complaints: * 1 . [...] * Images: Billing Information: * Visit Code: 02105 Office Visit, Est Pt., Level 3. * Procedure Codes: * Electronic signature of Emily Panda MD on 04/25/2025 at 07:53 PM EDT Sign off status: Pending * Provider: Micheline Panda M.D. Date: 1 09/30/2023 Generated for Printi ng/Faxing/eTransmitting on: 0 04/25/2025 07:53 PM EDT History [...]
--- OUTSIDE RECORDS SUMMARY | 2025-02-14 13:45 | XMS_ITS ---
Author Organization [facility] Address [address] [facility] [address] [place] [id number] Care Team Providers Care Cloth Hand Name Role Phone Farzad Tad Primary Care [...] Provider Diagnosis Sean [address] [facility] [address] [place] [phone] 02/14/2025 [place] Panda 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 and BMI [...] * MARIIA RHODESDOB:[birth year] (49 yo M)Acc No.[id number]:02/14/2025 Progress Notes Patient: MARIIA POLO Provider: Micheline Panda M.D. :1975 A ge:49 Y S ex:Male Date:02/14/2025 Address:[address] [place] [address] [place] [id number] Subjective: * Chief Complaints: * 1 . [...] porotrichosis - B42.9 (Primary) 2 . B RI 27.0-27.9,adult - Z68.27 Plan: * Treatment: * Procedure Codes: G 8420 BMI<30 AND >=22 CALC & DOCU, G8783 BP SCR PRFRM RCMDD DEFIND SCR INTVL, G8752 MOST RECENT SYSTOLIC BP < 140MM HG, G8754 MOST RECENT DIASTOLIC BP < 90MM HG * Follow Up: 4 Months * Images: Billing Information: * Visit Code: 92520 Office Visit, Est Pt., Level 3. * Procedure Codes: G8420 BMI<30 AND >=22 CALC & DOCU. G8783 BP SCR PRFRM RCMDD DEFIND SCR INTVL. G8752 MOST RECENT SYSTOLIC BP < 140MM HG. G8754 MOST RECENT DIASTOLIC BP < 90MM HG. * Electronic signature of Emily Panda MD on 04/25/2025 at 07:52 PM EDT Sign off status: Pending * Provider: Micheline Panda M.D. Date: 0 02/14/2025 Generated for Ольга moore/Amy/Bernardinosmitting on: 0 04/25/2025 07:52 PM EDT History and Physical Notes * [...]
[2025-04-25 19:44] VITALS: BP 129/62; PULSE 72; RESP 18; TEMP 36.9; O2SAT 100; BMI 26.6
--- NOTE | 2025-04-25 19:48 | XR_ITS ---
PROCEDURE INFORMATION: Exam: XR Right Hand Exam date and time: 04/25/2025 7:42 PM Age: 49 years old Clinical indication: Injury or trauma; Other: Caught in trailer chain; Blunt trauma (contusions or hematomas); Hand; Right; Additional info: Right ring finger injury TECHNIQUE: Imaging protocol: Radiologic exam of the right hand. Views: 3 or more views. COMPARISON: CR XR HAND RT MIN 3V 04/25/2025 7:42 PM FINDINGS: Bones/joints: Osseous alignment is normal. No acute fracture. No significant arthritic change. Soft tissues: Linear density partially projecting over the 3rd and 4th fingers appears to represent artifact IMPRESSION: No osseous abnormality
--- NOTE | 2025-04-25 19:48 | XR_ITS ---
PROCEDURE INFORMATION: Exam: XR Right Finger(s) Exam date and time: 04/25/2025 7:44 PM Age: 49 years old Clinical indication: Injury or trauma; Other: Caught in trailer chain; Blunt trauma (contusions or hematomas); Right; Ring finger; Additional info: Right ring finger injury TECHNIQUE: Imaging protocol: Radiologic exam of the right fingers. Views: Minimum 2 views. COMPARISON: CR Hand R 04/25/2025 7:42 PM FINDINGS: Bones/joints: Osseous alignment is normal. No acute fracture. No significant arthritic change. Soft tissues: Normal. IMPRESSION: Negative right finger
--- OUTSIDE RECORDS SUMMARY | 2025-04-25 19:53 | XMS_ITS | Patient Health Record ---
Author Organization [facility] Address [address] [place] [phone] Care Team Providers Care Training Technician Name Role Phone Tad Panda Primary Care Provider Katya Prakash Unavailable [phone] Allergies No Known Allergies Results Component Value Reference Range Notes X ray : Wrist, left Reviewed date:10/08/2024 09:10:50 AM Interpretation:No acute process Performing Lab: Notes/Report: No acute process X ray : Hand, left Reviewed date:10/08/2024 09:10:50 AM Interpretation:Normal Performing Lab: Notes/Report: Normal Reason For Referral Diagnosis 1 Pain of left thumb ( M79.645) Diagnosis 2 Extensor tenosynovit is of thumb (M65.949) [facility] Referring Provider First Name Tad Referring Provider Last Name Farzad Referring Provider Speciality Family [facility] ctice Referred Provider Ariel Stovall Referred Provider Specialty Orthopedic S urgery General Notes Eugenia Santos 08/02/20 24 8:37:54 AM > faxed to Dr. Stovall's office Referral Priority Routine Medications Medication SIG (Take, Route, Fr equency, Duration) Notes Start Date End Date Status Sulindac 200 MG 1 tab(s) orally 2 ti mes a day as needed; Duration: 30 days Active Itraconazole 100 MG 2 capsules after a m eal Orally Once a day; Duration: 30 days 02/14/2025 Ac tive Immunizations Vaccine Route Administration Date Status Comme nts COVID 19 Pfizer Unknown 09/06/2021 Administered Social History Tobacco Use: Social History Observation Description Date Details (start date - stop date) Current Smoker NA - NA CURRENT TOBACCO USE: Question Answer Notes Are you a: current smoker How many cigarettes a day do you smoke? 5 or les s Problems Problem Type SNOMED Code ICD Code Onset Dates Problem Status W/U Status Risk Notes Problem Anxiety (29434882) Anxiety (F41.9) Active confi rmed Problem Degeneration of lumbar intervertebral disc (80172702) Degenerative disc disease, lumbar (M51.36) Active confirmed Problem Restless legs (66930441) Restless legs (G25.81) Active confirmed Problem Adjustment insomnia (356909155) Adjustment insomnia (F51.02) Active confirmed Problem Contracture of palmar fascia (318383574) Dupuytren's contracture (M72.0) Active confirmed Vital Signs Heart Rate 69 /min 02/14/2025 Blood pressure diastolic 76 mm Hg 02/14/2025 Height 68 in 02/14/2025 Blood pressure systolic 134 mm Hg 02/14/2025 Weight 182 lbs 02/14/2025 BMI 27.67 kg/m2 02/14/2025 Encounters Encounter Location Date Provider Diagnosis [facility] [address] [facility] [address] [place], [place] [phone] 10/08/2024 Tad [place] [facility] [address] [facility] [address] [place], [place] [phone] 10/11/2024 Tad [place] [facility] [address] [facility] [address] [place] [phone] 03/07/2025 Tad [place] [facility] [address] [facility] [address] [place] [phone] 07/30/2024 Tad [place] Pain of left thumb M79.645 and Extensor tenosynovitis of thumb M65.949 [facility] [address] [facility] [address] [place], [place] [phone] 02/14/2025 Tad [place] 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 and BMI 27.0-27.9,adult Z68.27 Assessments Encounter Date Diagnosis (ICD Code) Assessment Notes Treatment Notes Treatment Clinical Notes Section Notes 07/30/2024 Pain of left thumb (ICD-10 - M79.645) 07/30/2024 Extensor tenosynovitis of thumb (ICD-10 - M65.949) 02/14/2025 BMI 27.0-27.9,adult (ICD-10 - Z68.27) 02/14/2025 Sporotrichosis (ICD-10 - B42.9) Plan Of Treatment Pending Test Test Name Order Date LC-Comp. Metabolic Panel (14) 08/28/2021 Insurance Providers Payer Name Payer Address Payer Phone Subscriber Number Group Number Insured Name Patient Relationship to Insured Coverage Start Date Coverage End Date [employer] [facility] [address] [place], [place] [id number] MARIIA ROD Self - patient is the insured Medical (General) History Medical History History ICD Code Lumbar Disc Disease Surgical History Surgery Date(Month/Year) Back Discectomy 11/2015 Hospitalization History Reason Date(Month/Year)
--- OUTSIDE RECORDS SUMMARY | 2025-04-25 19:53 | XMS_ITS | Clinical Summary ---
Author Organization [facility] Address [address] [facility] [place] [address] Care Team Providers Care Academic Coordinator Name Role Phone Brian Prakash MD Primary Care Provider [phone] Allergies No known active allergies Medications sulindac (Clinoril) 200 MG tablet Take 200 mg by mouth 2 (two) times a day. 08/28/2021 Active traMADol (Ultram) 50 MG tablet Take 50 mg by mouth 3 (three) times a day if needed. 08/01/2021 Active Active Problems Problem Noted Date Diagnosed Date Degenerative disc disease, lumbar 09/11/2021 Lumbosacral radiculopathy at L5 09/11/2021 Social History Tobacco Use Types Packs/Day Years Used Date Smoking Tobacco: Every Day Smokeless Tobacco: Never Comments:3 cigarettes before bed Alcohol Use Standard Drinks/Week Comments Not Currently 0 (1 standard drink = 0.6 oz pur e alcohol) Sex and Gender Information Value Date Recorded Sex Assigned at Not on file Legal Sex Male 9:12 AM EST Gender Identity Not on file Sexual Orientation Not on file Last Filed Vital Signs Vital Sign Reading Time Taken Comments Blood Pressure 134/72 09/11/2021 10:27 AM EST Pulse - - Temperature - - Respiratory Rate - - Oxygen Saturation - - Inhaled Oxygen Concentration - - Weight 81.6 kg (180 lb) 09/11/2021 10:27 AM EST Height 175.3 cm (5' 9 ) 09/11/2021 10:27 AM EST Body Mass Index 26.58 09/11/2021 10:27 AM EST Plan of Treatment Health Maintenance Due Date Last Done Comments [facility]-Depression Screening 1975 [facility]-/Child/Adol SDOH Screenings 1975 [facility]- SDOH Screenings 1994 [facility]-Adult SDOH Screenings 1994 [facility]-DTaP,Tdap,and Td Vaccine s (1 - Tdap) 1995 [facility]-Hepatitis B Vaccines (1 of 3 - 19+ 3-dose series) 1995 CT Colonography 2021 Colonoscopy 2021 FIT-DNA 2021 FIT 2021 FOBT 2021 Sigmoidoscopy 2021 [facility]-Colorectal Cancer Screening 2021 CXV-GHQOG-68 Vaccine (2 - 20 24-25 season) 2024 09/06/2021 [facility]-Influenza Vaccine (#1) 2025 [facility]-Zoster Vaccines (1 of 2) 2026 HPV Vaccines Aged Out No longer eligi ble based on patient's age to complete this topic [facility]-HIB Vaccines Aged Out No longer e ligible based on patient's age to complete this topic [facility]-Hepatitis A Vaccines Aged Out No longer eligible based on patient's age to complete this topic [facility]-IPV Vaccines Aged Out No longer e ligible based on patient's age to complete this topic [facility]-Pneumococcal Vaccine: Pediatrics (0 to 5 Years) and At-Risk Patients (6 to 49 Years) Aged Out No long er eligible based on patient's age to complete this topic [facility]-Rotavirus Vaccines Aged Out No lo nger eligible based on patient's age to complete this topic Insurance [facility] MEDICAID Care Teams Academic Coordinator Relationship Specialty Start Date End Date Brian Prakash MD [address] [place] [address] [place] [id number] PCP - General 09/11/21
--- NOTE | 2025-04-25 20:25 | ED_ITS ---
<Statement entered by Fred Stephen MD - 04/25/25 23:11> I was consulted by the TYRESE, and we discussed the complexity of the problems being addressed. I approved the treatment and management plan for this patient's care in the emergency department, thus performing a substantive portion of the medical decision making. Fred Stephen MD Discharge Plan Disposition Patient Disposition: Home, Self-Care Condition: Good Prescriptions Prescriptions: No Action sulindac 200 mg tablet 200 mg PO BID Referrals Follow up/Referrals: Tad Panda MD [Primary Care Provider, Medical] - See instructions Activity Restrictions/Add. Instructions Additional Instructions/Restrictions: Please return to the emergency department with any worsening signs or symptoms, please follow-up with your PCP in the upcoming days/weeks, recommend ibuprofen Tylenol or other anti-inflammatory medication as needed for symptomatic relief. Recommend rest and ice. Clinical Impressions Clinical Impression: Crushing injury of right ring finger Instructions Patient Instructions: DI for Crush Injury Print Language Print Language: Hong Konger Discharge ED Provider: Fred Stephen General Adult HPI General Chief complaint: Extremity Injury, Upper Stated complaint: AO 04/24/25 1630 Mashed right ring finger Time Seen by Provider: 04/25/25 20:11 Mode of Arrival: Ambulatory Source of Information: Patient Description of Symptoms (Recalled from ER Triage Doc. by RN): Pt presents for evaluation of an injury to his right ring finger after getting his finger caught in a chain. Pt has swelling to his finger, limited ROM, and bruising to the nail. History of Present Illness HPI narrative: 49-year-old male presents the emergency department with a right ring finger crush injury due to a chain , patient states his finger was crushed for 30 seconds to 1 minute, patient endorses pain and swelling to his fingertip, this injury occurred yesterday. Patient moves extremity to command, does have some ecchymosis that is not taking up one third of the patient's nail, patient has any fever chills chest pain shortness of breath nausea vomiting constipation diarrhea, no abdominal pain, no other upper or lower extremity injury, patient has past medical history consistent with anxiety/MDD, spinal stenosis of lumbar region, patient denies any alcohol tobacco or drug use. Initial triage vitals unremarkable. Please note that above description of symptoms, in this electronic medical record under categorization of recalled from ER triage doctor by RN are reflective of an initial nursing assessment, however, is not reflective of my full history and physical exam that was personally taken and clarified. Consequentially, this preceding description of symptoms, which may include the patient's categorized chief complaint in the EMR, do not reflect my personal clinical impression, and the ultimate description of history of present illness and patient stated complaints should be deferred to this section of the note. Unless stated otherwise or congruent with this section of the note, additional signs, symptoms, or incongruence should be interpreted as inaccurate with my clinical impression. Onset (ago): day(s) Related Data Home Medications ?Medication ?Instructions ?Recorded ?Confirmed sulindac 200 mg tablet 200 mg PO BID Pain 12/09/24 12/09/24 Allergies Allergy/AdvReac Type Severity Reaction Status Date / Time gabapentin AdvReac Other Verified 12/09/24 09:39 [facility] Disclaimer: The information contained in this section may have been updated after the patient was seen, as this information can be updated by other users. Medical History No significant past medical history Surgical History History of back surgery Family History Other No significant family history Social History Smoking Status: Never smoker alcohol intake: never substance use type: denies use current occupational status: other Travel in the last 8 weeks?: None household members: spouse housing: house caffeine: Yes Have you lived/traveled outside US in past 30 days?: No Contact w/someone who lives/traveled outside US past 30 days?: No Exposure to someone with infectious disease in past 14 days?: No Do you have a fever (greater than 100.4 F or 38 C)?: No Have you tested positive for COVID-19?: No Exposed to someone with COVID-19 in past 14 days?: No Do you have a sore throat?: No Do you have a cough?: No Do you have any weakness?: No Do you have any diarrhea?: No Are you experiencing any unusual bleeding?: No Do you have any muscle aches/pain?: No Do you have any abdominal pain?: No Are you experiencing loss of taste or smell?: No Other Medical History Have you received the Flu Vaccine for this season: No Have you received the Pneumonia Vaccine: No ROS Obtained: Yes All systems reviewed & no additional complaints except as documented Physical Exam General General appearance: alert and in no apparent distress Head Head exam: atraumatic and normocephalic Eye Eye exam: Present PERRL and EOMI ENT ENT exam: Present mucous membranes moist Neck Neck exam: Present normal inspection Chest Chest inspection: Present normal inspection and symmetric chest wall rise Respiratory Respiratory exam: Present normal lung sounds bilaterally; Absent respiratory distress Cardiovascular Cardiovascular exam: Present regular rate and normal rhythm Abdominal Exam Abdominal exam: Present soft; Absent tenderness Extremities Exam Extremities exam: Present normal inspection, full ROM, tenderness and other (There is pain to palpation over the DIP joint, patient has no sensation deficit, good finger opposition, moves extremity to command, good strength, otherwise neurovascular intact, no obvious open fracture, no deformity) Neurological Exam Neurological exam: Present alert and oriented X3 Psychiatric Psychiatric exam: Present normal affect Skin Skin exam: Present warm, dry and other (Small ecchymosis about the distal nailbed, consistent with very small subungual hematoma) Medical Decision Making Medical Records Medical records reviewed: Yes I reviewed the patient's medical records. Screening: Per USPSTF and CDC recommendations, given the prevalence of disease in our reg ion, it is our hospital?s policy to screen for HIV and viral Hepatitis for all patients aged 18 and over and those with ongoing risk factors. Keith Inquiry Pt receiving controlled substance: No Vital Signs: 04/25/25 19:44 Temperature 98.5 F Temperature Source Oral Pulse Rate [Right] 72 Respiratory Rate 18 Blood Pressure [Right Arm] 129/62 Blood Pressure Mean [Right Arm] 84 Blood Pressure Source [Right Arm] Automatic Cuff Blood Pressure Position [Right Arm] Sitting 02 Sat by Pulse Oximetry 100 Orders (Tests/Meds): ORDERS Category Date Time Status Finger XR right minimum 2 views [XR finger RT min 2V] Exams 04/25/25 19:48 Completed Stat XR hand RT min 3V Stat Exams 04/25/25 19:48 Completed Medical Decision Narrative: 49-year-old male presents to the emergency department with a right ring finger injury, yesterday, differential diagnosis include but not limited to subungual hematoma, finger fracture, finger sprain along others. I discussed this patient's case with the attending physician Dr. Stephen Will obtain x-ray of the hand and x-ray of the finger for further evaluation/characterization. I reviewed the patient's right hand x-ray and finger x-rays along with the corresponding radiologic reports, no acute osseous abnormality, there is a linear density partially projecting over the 3rd and 4th fingers appears to be artifactual. I discussed these results with the patient at the bedside, the think less likely for acute traumatic tendon injury as patient moves extremity to command and has good flexion extension, good finger opposition, operative drain patient's small subungual hematoma in the Emergency Department patient declined at this time would like to pursue outpatient treatment for this I think this appropriate she had decision-making was utilized with the patient subungual hematoma is minimal and does not even take up a third of the nail. Recommend ibuprofen Tylenol and other anti-inflammatory medication as needed for symptomatic relief recommend ice. Patient voiced understanding and agreed with the current treatment plan/discharge plan. Critical Care Critical Care Time Critical Care Time: No
[2025-04-25 21:22] VITALS: BP 135/77; PULSE 68; RESP 20; TEMP 36.7; O2SAT 98
== END 2025-04-25 21:23 | disposition home or self-care (01) ==
PROVIDERS: Emergency Provider Emergency Medicine; PCP Family Medicine
DX: S67.194A Crushing injury of right ring finger, initial encounter (principal); W23.0XXA Caught, crushed, jammed, or pinched between moving objects, initial encounter
CPT/HCPCS: 73130; 73140; 99283

== ENCOUNTER 2025-07-02 11:56 | Emergency (ER) | payer OTHER, SELFPAY ==
--- OUTSIDE RECORDS SUMMARY | 2024-01-09 06:00 | XMS_ITS ---
[facility] [address] [place] [id number] Care Team Providers Care Equipment Sales Specialist Name Role Phone Tad Panda Primary Care Provider [phone] Ktaya Prakash Unavailable [phone] Allergies No Known Allergies Reason For Referral Reason POSITIVE COLOGUARD Diagnosis 1 Positive colorectal cancer screening using Cologuard test (R19.5) [facility] Referring Provider First Name Katya Olea Referring Provider Last Name Dwain Referring Provider Speciality Family Pra ctice Referred Provider SOFIA VALENTINE Referred Provider Specialty General Surg sebastian General Notes Eugenia Santos 01/09/20 1:55:48 PM > ELLEN in [place]'s office has left for the day; instructed to call back on FridayDanielle Brynn 01/12/2024 11:16:33 AM > [facility] to call me backDanielle Brynn 01/13/2024 1:12:03 PM > [facility] 02/24/2024; preop will call with time; patient informed; referral sent Referral Priority Routine REASON FOR VISIT discuss cologuard Medications Medication SIG (Take, Route, Fr equency, Duration) Notes Start Date End Date Status Sulindac 200 MG 1 tab(s) orally 2 ti mes a day as needed; Duration: 30 days Active Social History Tobacco Use: Social History Observation Description Date Details (start date - stop date) Current Smoker NA - NA CURRENT TOBACCO USE: Question Answer Notes Are you a: current smoker How many cigarettes a day do you smoke? 5 or les s Vital Signs Blood pressure systolic 112 mm Hg 01/09/20 24 Blood pressure diastolic 72 mm Hg 024 Heart Rate 45 /min 01/09/2024 Height 68 in 01/09/2024 Weight 177.8 lbs 01/09/2024 BMI 27.03 kg/m2 01/09/2024 Encounters Encounter Location Date Provider Diagnosis [facility] [address] [place] [id number] 01/09/2024 Katya Prakash Positive colorectal cancer screening using Cologuard test R19.5 Assessments Encounter Date Diagnosis (ICD Code) Assessment Notes Treatment Notes Treatment Clinical Notes Section Notes 01/09/2024 Positive colorectal cancer screening using Cologuard test (ICD-10 - R19.5) Plan Of Treatment Referrals Referral Date Details 01/09/2024 01/09/2024, POSITIVE COLOGUARD, SOFIA VALENTINE Next Appt Details Follow Up: 2 Months, Reason: Progress Notes * MARIIA RODDOB:[birth year] (50 yo M)Acc No.[id number]:01/09/2024 Progress Notes Patient: MARIIA POLO Provider: Katya Prakash M.D. :1975 A ge:48 Y S ex:Male Date:01/09/2024 Address:[address] [place] [address] [id number] Pcp:Tad Panda Subjective: * Chief Complaints: * 1 . Discuss cologuard. * HPI: G astroenterology: The patient is here today to discuss his recent positive cologuard. Pt states he has had some LUQ abdominal rumbling and feels hard. Pt denies any pain. Denies : Abdominal Pain. D enies : Nausea. D enies : Vomiting. D enies : Diarrhea. D enies : Fever. D enies : Blood in Stool. * ROS: D ERMATOLOGY: no R ankur. n o H oksana. G ASTROENTEROLOGY: no N ausea. n o V omiting. n o D iarrhea.? U ROLOGY: no D ifficulty urinating. n o B lood in urine. * Medical History: L umbar Disc Disease. * Surgical History: B ack Discectomy 11/2015. * Family History: F ather: alive. M other: alive. S iblings: alive. C hildren: alive. 1 brother(s) , 3 sister(s) - healthy. 1 son(s) , 3 daughter(s) - healthy. . * Social History: C URRENT TOBACCO USE: Yes A re you a: c urrent smoker, H ow many cigarettes a day do you smoke? 5 or less. C affeine: yes, frequency: 1 cup a day, coffee. * Medications: T aking Sulindac 200 MG Tablet 1 tab(s) orally 2 times a day as needed , Discontinued QUEtiapine Fumarate 100 MG Tablet TAKE 1 TABLET BY MOUTH EVERY DAY AT BEDTIME , Medication List reviewed and reconciled with the patient * Allergies: N .K.D.A. Objective: * Vitals: W t:177.8, Temp:98.1, BP:112/72, HR:45, Nurse:TRUNG, Ht: 68, BMI:27.03. * Examination: G eneral Examination: General Appearance: N AD. H EENT: u nremarkable.?Oral cavity: n o lesions, mucosa moist and WNL, no erythema. N jatin: s upple, no lymphadenopathy. C hest: n ormal shape and expansion. H eart: R SR. L ungs: c lear to auscultation. A bdomen: soft and nontender, slight sensitivity LLQ, n o organomegaly or masses. N eurologic Exam: I ntact, gait normal. S kin: n ormal, no rash.?Peripheral pulses: n ormal . B ack: normal. E xtremities: n o leg edema.? Assessment: * Assessment: 1. P ositive colorectal cancer screening using Cologuard test - R19.5 (Primary) ? Plan: * Treatment: * Follow Up: 2 Months * Images: Billing Information: * Visit Code: 11666 Office Visit, Est Pt., Level 3. * Procedure Codes: * Electronic signature of Katya Prakash MD on 07/02/2025 at 12:23 PM EST Sign off status: Pending * Provider: Katya Prakash M.D. Date: 01/09/2024 Generated for Ольга moore/Amy/Bernardinosmitting on: 1 09/01/2024 12:23 PM EST History and Physical Notes * HPI (History of Present Illness) Category Sub-Category Detail Notes Category Not es Gastroenterology Fever Vomiting Abdominal Pain Diarrhea Blood in Stool Nausea Examination Category Sub-Category Detail Notes Category Not es General Examination HEENT: unremarkable Heart: RSR Lungs: clear to auscultatio n Abdomen: soft and nontender, slight sensitivity LLQ, no organomegaly or masses Extremities: no leg edema General Appearance: NAD Skin: normal, no rash Neurologic Exam: Intact, gait normal Neck: supple, no lymphaden opathy Oral cavity: no lesions, mucosa m oist and WNL, no erythema Peripheral pulses: normal Back: normal Chest: normal shape and exp ansion Consultation Request Notes Referral Date Referring Provider Referred Provider Not es 01/09/2024 Katya Prakash CHARLES POSITIV E COLOGUARD
--- OUTSIDE RECORDS SUMMARY | 2024-04-29 11:00 | XMS_ITS ---
Author Organization [facility] Address [address] [facility] [address] [place] [id number] Care Team Providers Care Staff Weapons Officer Name Role Phone Tad Panda Primary Care Provider Katya Prakash [phone] REASON FOR VISIT 2 mos checkup, Needs labs with PSA Encounters Encounter Location Date Provider Diagnosis [facility] [address] [facility] [address] [place] [id number] 04/29/2024 Katya Prakash Plan Of Treatment No Information Progress Notes * MARIIA RHODESDOB:[birth year] (50 yo M)Acc No.[id number]:04/29/2024 Progress Notes Patient: MARIIA POLO Provider: Katya Prakash M.D. :1975 A ge:48 Y S ex:Male Date:04/29/2024 Address:[address] [facility] [place], [id number] Pcp:Tad Panda Subjective: * Chief Complaints: * 1 . 2 mos checkup. 2. Needs labs with PSA. * Medical History: Objective: * Vitals: Assessment: Plan: * Treatment: * Images: Billing Information: * Visit Code: * Procedure Codes: * Electronic signature of Katya Prakash MD on 07/02/2025 at 12:22 PM EST Sign off status: Pending * Provider: Katya Prakash M.D. Date: 0 04/29/2024 Generated for Ольга moore/Amy/Bernardinosmitting on: 1 09/01/2024 12:22 PM EST
--- OUTSIDE RECORDS SUMMARY | 2024-07-30 11:15 | XMS_ITS ---
Author Organization [facility] Address [address] [place] [id number] Care Team Providers Care Deep Well Contractor Name Role Phone Tad Panda Primary Care Provider Allergies No Known Allergies Results Component Value Reference Range Notes X ray : Hand, left Reviewed date:10/08/2024 09:10:50 AM Interpretation:Normal Performing Lab: Notes/Report: Normal X ray : Wrist, left Reviewed date:10/08/2024 09:10:50 AM Interpretation:No acute process Performing Lab: Notes/Report: No acute process Reason For Referral Diagnosis 1 Pain of left thumb ( M79.645) Diagnosis 2 Extensor tenosynovit is of thumb (M65.949) [facility] Referring Provider First Name Tad Referring Provider Last Name Farzad Referring Provider Speciality Family [facility] ctice Referred Provider Ariel Stovall Referred Provider Specialty Orthopedic S urgery General Notes Eugenia Santos 08/02/20 24 8:37:54 AM > faxed to Dr. Stovall's office Referral Priority Routine REASON FOR VISIT left thumb issues, not working anymore Medications Medication SIG (Take, Route, Frequency, Duration) Notes Start Date End Date Status Sulindac 200 MG 1 tab(s) orally 2 ti mes a day as needed; Duration: 30 days Active Thumb Splint/Left Large - spica 07/30/2024 Active Social History Tobacco Use: Social History Observation Description Date Details (start date - stop date) Current Smoker NA - NA CURRENT TOBACCO USE: Question Answer Notes Are you a: current smoker How many cigarettes a day do you smoke? 5 or les s Vital Signs Blood pressure systolic 122 mm Hg 07/30/20 24 Blood pressure diastolic 70 mm Hg 024 Heart Rate 75 /min 07/30/2024 Height 68 in 07/30/2024 Weight 176.8 lbs 07/30/2024 BMI 26.88 kg/m2 07/30/2024 Encounters Encounter Location Date Provider Diagnosis [facility] [address] [place] [id number] 07/30/2024 Tad [place] Pain of left thumb M79.645 and Extensor tenosynovitis of thumb M65.949 Assessments Encounter Date Diagnosis (ICD Code) Assessment Notes Treatment Notes Treatment Clinical Notes Section Notes 07/30/2024 Pain of left thumb (ICD-10 - M79.645) 07/30/2024 Extensor tenosynovitis of thumb (ICD-10 - M65.949) Plan Of Treatment Medication Medication Name Sig Start Date Stop Date Notes Thumb Splint/Left Large - spica 07/30/2024 Referrals Referral Date Details 07/30/2024 07/30/2024, Ariel norman Next Appt Details Follow Up: via phone to repo rt test results, Reason: Progress Notes * MARIIA RHODESDOB:[birth year] (50 yo M)Acc No.[id number]:07/30/2024 Progress Notes Patient: MARIIA POLO Provider: Micheline Panda M.D. :1975 A ge:49 Y S ex:Male Date:07/30/2024 Address:[address] [place] [address] [id number] Subjective: * Chief Complaints: * 1 . Left thumb issues, not working anymore . * HPI: W rist/Hand: 49 year old male presents with c/o Weakness P t complains lt thumb not working . 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 Pt is able to move thumb towards palm of hand but cannot straighten it . * ROS: D ERMATOLOGY: no R ankur. [...] 2 times a day as needed , Medication List reviewed and reconciled with the patient * Allergies: N .K.D.A. Objective: * Vitals: W t:176.8, Temp:97.8, BP:122/70, HR:75, Nurse:donaldo, Ht: 68, BMI:26.88. * Examination: G eneral Examination: General Appearance: N AD. E xtremities: p atient has no active extension of the left thumb distal phalanx, normal passive ROM. Assessment: * Assessment: 1. P ain of left thumb - M79.645 (Primary) 2 . E xtensor tenosynovitis of thumb - M65.949 Plan: * Treatment: ?Imaging: X ray : Wrist, left (Performed Date - 10/07/2024)?No acute process * Maday Castano 10/08/2024 9:10 :35 AM > see TE ? Referral To:Ariel Stovall??Orthopedic Surgery ?Reason: 2.?Extensor tenosynovitis of thumb? Start Thumb Splint/Left Large Miscellaneous, -, spica, 1, Refills 0.?&# 160;? Referral To:Ariel Stovall??Orthopedic Surgery ?Reason: * Follow Up: v ia phone to report test results * Images: Billing Information: * Visit Code: 72033 Office Visit, Est Pt., Level 3. * Procedure Codes: * Electronic signature of Emily Panda MD on 07/02/2025 at 12:23 PM EST Sign off status: Pending * Provider: Micheline Panda M.D. Date: 09/30/2023 Generated for Alinei teresa/Amy/eTransmitting on: 09/01/2024 12:23 PM EST History and Physical Notes * HPI (History of Present Illness) Category Sub-Category Detail Notes Category Not es Wrist/Hand Weakness Pt complains lt thumb not working . 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 Pt is able to move thumb towards palm of hand but cannot straighten it Examination Category Sub-Category Detail Notes Category Not es General Examination Extremities: patient has no active extension of the left thumb distal phalanx, normal passive ROM General Appearance: NAD Consultation Request Notes Referral Date Referring Provider Referred Provider Not es 07/30/2024 Tad Panda, Gene
--- OUTSIDE RECORDS SUMMARY | 2025-02-14 12:45 | XMS_ITS ---
Author Organization [facility] Address [address] [facility] [address] [place] [phone] Care Team Providers Care Automobile Detailer Name Role Phone Farzad Tad Primary Care Provider Allergies No Known Allergies REASON FOR VISIT referral for derm Medications Medication SIG (Take, Route, Fr equency, Duration) Notes Start Date End Date Status Sulindac 200 MG 1 tab(s) orally 2 ti mes a day as needed; Duration: 30 days Active Itraconazole 100 MG 2 capsules after a m eal Orally Once a day; Duration: 30 days 02/14/2025 Ac tive Social History Tobacco Use: Social History Observation Description Date Details (start date - stop date) Current Smoker NA - NA CURRENT TOBACCO USE: Question Answer Notes Are you a: current smoker How many cigarettes a day do you smoke? 5 or les s Vital Signs Blood pressure systolic 134 mm Hg 02/15/20 25 Blood pressure diastolic 76 mm Hg 025 Heart Rate 69 /min 02/14/2025 Height 68 in 02/14/2025 Weight 182 lbs 02/14/2025 BMI 27.67 kg/m2 02/14/2025 Encounters Encounter Location Date Provider Diagnosis Sean [address] [facility] [address] [place] [phone] 02/14/2025 [place] Panda 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 and BMI 27.0-27.9,adult Z68.27 Assessments Encounter Date Diagnosis (ICD Code) Assessment Notes Treatment Notes Treatment Clinical Notes Section Notes 02/14/2025 Sporotrichosis (ICD-10 - B42.9) 02/14/2025 BMI 27.0-27.9,adult (ICD-10 - Z68.27) Plan Of Treatment Medication Medication Name Sig Start Date Stop Date Notes Itraconazole 100 MG 2 capsules after a m eal Orally Once a day; Duration: 30 days 02/14/2025 Next Appt Details Follow Up: 4 Months, Reason: Progress Notes * MARIIA RHODESDOB:[birth year] (50 yo M)Acc No.[id number]:02/14/2025 Progress Notes Patient: MARIIA POLO Provider: Micheline Panda M.D. :1975 A ge:49 Y S ex:Male Date:02/14/2025 Address:[address] [place] [address] [id number] Subjective: * Chief Complaints: * 1 . Referral for derm. * HPI: D ermatology: 49 year old male presents with c/o contact with irritant P t complains of raised area on top on lt hand for about 3 months. 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 Previously treated with Itraconazole and he thought the rash had completely resolved. * ROS: C ARDIOLOGY: no D izziness. n o C hest pain. G ASTROENTEROLOGY: no N ausea. n o V omiting. U ROLOGY: no D ifficulty urinating. n o B lood in urine. * Medical History: L umbar Disc Disease. * Surgical History: B ack Discectomy 11/2015. * Hospitalization/Major Diagno stic Procedure: D enies Past Hospitalization. * Family History: F ather: alive. M [...] times a day as needed , Discontinued Thumb Splint/Left Large - Miscellaneous spica , Medication List reviewed and reconciled with the patient * Allergies: N .K.D.A. Objective: * Vitals: W t: 182, Temp: 98.1, BP: 134/76, HR: 69, Nurse: ray/donaldo, Ht: 68, BMI:27.67. * Examination: G eneral Examination: General Appearance: N AD. S kin: r ankur on the dorsum of the right hand, centered at the 2 nd MCP joint and on the proximal phalanx. ? Assessment: * Assessment: 1. 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 B MO 27.0-27.9,adult - Z68.27 Plan: * Treatment: * Procedure Codes: G 8420 BMI<30 AND >=22 CALC & DOCU, G8783 BP SCR PRFRM RCMDD DEFIND SCR INTVL, G8752 MOST RECENT SYSTOLIC BP < 140MM HG, G8754 MOST RECENT DIASTOLIC BP < 90MM HG * Follow Up: 4 Months * Images: Billing Information: * Visit Code: 31841 Office Visit, Est Pt., Level 3. * Procedure Codes: G8420 BMI<30 AND >=22 CALC & DOCU. G8783 BP SCR PRFRM RCMDD DEFIND SCR INTVL. G8752 MOST RECENT SYSTOLIC BP < 140MM HG. G8754 MOST RECENT DIASTOLIC BP < 90MM HG. * Electronic signature of Emily Panda MD on 07/02/2025 at 12:22 PM EST Sign off status: Pending * Provider: Micheline Panda M.D. Date: 0 02/14/2025 Generated for Ольга moore/Amy/Bernardinosmitting on: 09/01/2024 12:22 PM EST History and Physical Notes * HPI (History of Present Illness) Category Sub-Category Detail Notes Category Not es Dermatology contact with irritant Pt complai ns of raised area on top on lt hand for about 3 months. 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 Previously treated with Itraconazole and he thought the rash had completely resolved Examination Category Sub-Category Detail Notes Category Not es General Examination General Appearance: NAD Skin: rash on the dorsum o f the right hand, centered at the 2 nd MCP joint and on the proximal phalanx
[2025-07-02 12:18] VITALS: BP 137/78; PULSE 79; RESP 16; TEMP 36.9; O2SAT 98; BMI 26.6
--- OUTSIDE RECORDS SUMMARY | 2025-07-02 12:22 | XMS_ITS | Data Portability ---
Author Organization [place] [facility] [place] [facility], [facility] Address [address] [place] [address] Assessment Encounter Date Assessment Date Assessment LastModified by Organization Details LastModified Time 09/23/2017 09/23/2017 MRI Lumbar spine. LC. 09/23/17 - no recurrent disc herniation - mild to moderate foraminal stenosis at L2-3 and L3-4 Dr. Larsen reassured Mr. Rhodes that his MRI shows good decompression at L4-5. No sign of a new disc herniation. He does not recommend further surgery at this time. We could trial a lumbar injection, but Mr. Rhodes declines injections at this time. We will try amitriptyline for his nerve pain. He has had some improvement with flexeril in the past, and we will provide him with a new prescription for this. He understands to call the office if his symptoms do not improve. Seen by Dr. Larsen and myself. [email or web address] Not available 09/27/2017 15:05:33 Plan of Treatment Reminders Order Date Submit Date Provider Last Modified By Organization Details Last Modified Time Details Appointments None recorded. Lab None recorded. Referral None recorded. Procedures None recorded. Surgeries None recorded. Imaging MRI, lumbar spine, w/wo contrast [address] [facility], [address], [place], [address], 8 13:53:38 Medication Orders amitriptyl ine 25 mg tablet 2017 018 INTERFACE [facility] #[id number], [address] [facility] [address], [place], [id number], 8 16:59:16 cyclobenza nita 5 mg tablet 2017 018 INTERFACE [facility] #[id number], [address] [place], [id number], 8 16:59:18 gabapentin 300 mg capsule 2016 017 apurdie [facility] #[id number], [address] [place], [phone], 7 11:00:53 Patient TargetsNo targets recorded. Patient InstructionsNo instructions recorded. Reason for Referral None Reported. Results Created Date Observation Date Name Description Value Unit Range Abnormal Flag Note LastModifiedBy Organization Detail LastModifiedTime 09/23/19 18 09/23/2017 XR, eye, for forei gn body [address] [address] [place] Name: KENDELL Davidson t : [address] [place] Orderi ng Provid er: KINGSTON CHUN PS EXAM DATE: 2017 EXAM: XR FOREIG N BODY EYE HISTOR Y: [place] for pre-MR I screen ing. COMPAR SARAI: None. FINDIN GS: The bones of the face are normal in appear ance and alignm ent. There is no eviden ce of fractu re. There is no degene rative change . The parana marybeth sinuse s are clear. No radiop aque foreig n body projec ts over the orbits . IMPRES LAURA: 1. No radiop aque foreig n body projec ts over the orbits . Interp reted By: Susu valentino MD Electr onical ly Signed By: Susu valentino MD on 018 12:31 PM [email or web address] [facility] Radiology [address], [address], 09/30/2017 13:22:20 09/23/19 18 09/23/2017 MRI, lumba r spine , w/wo contr ast [facility] [address] [facility] [place] [address] Lety norman Name: KENDELL norman : [address] Lety norman Orderi ng Provid er: KINGSTON MCQUEEN EXAM DATE: 2017 EXAM: MR LUMBAR SPINE W/WO CONTRA ST HISTOR Y: 42-yea r-old male with low back pain radiat ing to the buttoc k and right leg. The patien t has had prior lumbar surger y. COMPAR SARAI: None. FINDIN GS: There is 9 degree s dextro scolio sis from T11 throug h L3, and mild levocu rvatur e at L4-L5. There is no eviden ce of fractu re. There is mild anteri or margin al osteop hytic spurri ng. No pathol ogic lesion is identi fied in the lumbar spine. The conus medull zeus is normal in appear ance at the L1 level. T11-T1 2: This interv ertebr al disc is essent ially normal in appear ance. T12-L1 : There is a mild disc bulge. There is no centra l canal stenos is or neural forami nal stenos is. L1-L2: There is a broad- based disc protru laura with far left latera l extens ion, and mild endpla te spurri ng. There is mild centra l canal stenos is. There is mild left neural forami nal stenos is. L2-L3: There is a broad- based disc protru laura and mild endpla te spurri ng. There is modera te centra l canal stenos is. There is mild/m oderat e bilate ral neural forami nal stenos is. L3-L4: There is a broad- based disc protru laura and mild endpla te spurri ng. There is mild centra l canal stenos is. There is mild/m oderat e bilate ral neural forami nal stenos is. L4-L5: There is a possib le right partia l latasha ctomy at this level. This may reflec t a prior partia l discec bonnie. There is mild diffus e promin ence of the disc and endpla te spurri ng. There is no centra l canal stenos is. There is modera te bilate ral neural forami nal stenos is. L5-S1: There is no disc abnorm ality. There is no centra l canal stenos is. There is no neural forami nal stenos is. After intrav enous admini strati on of 7.[address] ([facility] [phone] ), there is mild enhanc ement along the L4-L5 disc which may reflec t a prior partia l discec bonnie. There is a simple appear ing cyst in the left kidney . IMPRES LAURA: 1. There is modera te centra l canal stenos is at L2-L3, and mild centra l canal narrow ing at L1-L2 and L3-L4. 2. There is a possib le prior partia l discec bonnie at L4-L5. No focall y recurr ent protru laura is identi fied. There is modera te neural forami nal stenos is at this level. 3. There is mild/m oderat e bilate ral neural forami nal stenos is at L2-L3 and L3-L4. Interp reted By: Susu valentino MD Electr onical ly Signed By: Susu valentino MD on 018 1:48 PM [email or web address] [facility]iology [address], [address], 10/01/2017 16:34:24 Result Notes Documentation Provider Name and Address Organization Details Recorded Time Mri, Lumbar Spine, W/wo Contrast : [address] [address] Patient Name: MARIIA RHODES Patient : 1975 Patient Ordering Provider: NALLELY LARSEN EXAM DATE: 09/23/2017 EXAM: MR LUMBAR SPINE W/WO CONTRAST HISTORY: 42-year-old male with low back pain radiating to the buttock and right leg. The patient has had prior lumbar surgery. COMPARISON: None. FINDINGS: There is 9 degrees dextroscoliosis from T11 through L3, and mild levocurvature at L4-L5. There is no evidence of fracture. There is mild anterior marginal osteophytic spurring. No pathologic lesion is identified in the lumbar spine. The conus medullaris is normal in appearance at the L1 level. T11-T12: This intervertebral disc is essentially normal in appearance. T12-L1: There is a mild disc bulge. There is no central canal stenosis or neural foraminal stenosis. L1-L2: There is a broad-based disc protrusion with far left lateral extension, and mild endplate spurring. There is mild central canal stenosis. There is mild left neural foraminal stenosis. L2-L3: There is a broad-based disc protrusion and mild endplate spurring. There is moderate central canal stenosis. There is mild/moderate bilateral neural foraminal stenosis. L3-L4: There is a broad-based disc protrusion and mild endplate spurring. There is mild central canal stenosis. There is mild/moderate bilateral neural foraminal stenosis. L4-L5: There is a possible right partial laminectomy at this level. This may reflect a prior partial discectomy. There is mild diffuse prominence of the disc and endplate spurring. There is no central canal stenosis. There is moderate bilateral neural foraminal stenosis. L5-S1: There is no disc abnormality. There is no central canal stenosis. There is no neural foraminal stenosis. After intravenous administration of 7.5 cc Gadavist ([facility] [id number]), there is mild enhancement along the L4-L5 disc which may reflect a prior partial discectomy. There is a simple appearing cyst in the left kidney. IMPRESSION: 1. There is moderate central canal stenosis at L2-L3, and mild central canal narrowing at L1-L2 and L3-L4. 2. There is a possible prior partial discectomy at L4-L5. No focally recurrent protrusion is identified. There is moderate neural foraminal stenosis at this level. 3. There is mild/moderate bilateral neural foraminal stenosis at L2-L3 and L3-L4. Interpreted By: Brian Jean MD LOPEZ PA-C [address] [place] [address], [phone], [facility] 10/01/2017 16:34:24 Xr, Eye, For Foreign Body : [facility] [address] [place] [address] Patient Name: MARIIA RHODES Patient : 1975 Patient Ordering Provider: ANLLELY LARSEN EXAM DATE: 09/23/2017 EXAM: XR FOREIGN BODY EYE HISTORY: Patient for pre-MRI screening. COMPARISON: None. FINDINGS: The bones of the face are normal in appearance and alignment. There is no evidence of fracture. There is no degenerative change. The paranasal sinuses are clear. No radiopaque foreign body projects over the orbits. IMPRESSION: 1. No radiopaque foreign body projects over the orbits. Interpreted By: Brian Jean MD ELY LARSEN MD [address] [place] [address], [phone] 09/30/2017 13:22:21 Problems Name Problem SNOMED Code Status Onset Date Resolution Date Notes Provider Name and Address Organization Details Recorded Time Interverte bral disc prolapse 57496667 Active 2015 From Automated Load;Provi ivana: Rafat Larsen atus: Active Not Available [facility] 6 05:28:50 Problem Notes None recorded. Procedures Surgical History Date Name Laterality Status Provider Name and Address Organization Details Recorded Time 6 Back Surgery completed Marisol French [facility] 06/25/2017 10:34:32 Imaging Results None recorded. Procedure Notes None recorded. Medical Equipment None Reported. Allergies No known drug allergies Medications Name Sig Start Date Stop Date Status Note LastModified by Organization Details LastModified Time ibuprofen 800 mg tablet Every six hours 06/25 completed Duration : 30 days;Daniel quency: q6h;Medi cation Descript ion: ibuprofe n; Dosage:1 ; Route:or al; refills: 0; Quantity :60 tablet Not Available Not Available Not Available amitripty line 25 mg tablet Take 1 tablet every day by oral route at bedtime. 2017 active Not Available Not Available Not Avai lable gabapenti n 300 mg capsule Take 1 capsule every day by oral route at bedtime. 2016 active Not Available Not Available Not Avai lable cyclobenz aprine 5 mg tablet Take 1 tablet 3 times a day by oral route as needed. 2017 active Not Available Not Available Not Avai lable azithromy diana 06/25 completed Medicati on Descript ion: azithrom ycin; refills: 0 Not Available Not Available Not Available Vitals Date Recorded Body height Body mass index (BMI) Body weight Systolic And Diastolic Provider Name and Address Organization Details Last Updated DateTime 09/23/2017 175.26 cm 29.5 kg/m2 22865.47 g 130/90 mm[Hg] Yolande Clementeholz [facility] 09/23/2017 15:30:16 Date Recorded Body height Body mass index (BMI) Body weight Systolic And Diastolic Provider Name and Address Organization Details Last Updated DateTime 06/25/2017 175.26 cm 29.5 kg/m2 37775.47 g 130/90 mm[Hg] Marisol Rubior [facility] 06/25/2017 10:33:03 Social History None recorded. Functional Status None recorded. Mental Status None recorded. Family History Nothing Reported. Medical History No medical history recorded. Past Encounters Encounter ID Performer Location Encounter Start Date Encounter Closed Date Diagnosis/Indication Diagnosis SNOMED-CT Code Diagnosis ICD10 Code Diagnosis IMO Codes Diagnosis Note [id number] NALLELY LARSEN MD [facility] [address] [place] [address] 06/25/2017 10:25:16 06/26/2017 08:51:14 Lumbar radiculopathy 672990723 M54.16 -The patient is having fasciculat ions in the right anterior tibialis and foot. I would suspect that this is some residual nerve damage from the disc herniation . Treatment options were reviewed. Recommend proceeding with an updated MRI. Trial of gabapentin . Educated about the side effects. Could take this during the day if they became bothersome while giving him good relief at night. [id number] ESPINOZA VEGA PA-C [facility] [address] [place] [address] 09/23/2017 13:21:29 09/29/2017 15:47:36 Lumbar radiculopathy 324514180 M54.16 Health Concerns Section Related Observation LastModified by Organization Detai ls LastModified Time None Recorded Concern Status LastModified by Organization Details LastModified Time None Recorded Advance Directives Directive None Recorded Payers Insurance Date Sequence Insurance Name Policy Number Policy French Covered Member ID French Member ID Guarantor Name 11/04/2018 1 *SELF PAY* Wi judsonyuval Rhodes 07/19/2020 1 [employer] - [employer] TPA - [employer] - FRONTPATH (PPO) [id number] Quiana Rhodes [id number] Mariia Rhodes Notes Date Note Type Note Provider Name and Address Organization Details Recorded Time 06/25/2017 text/html ROS as noted in the HPI Mr. Rhodes is a 41-year-old gentleman and an established patient of mine. He underwent a right L4-5 discectomy in November 2015. He had excellent results and complete resolution of his leg pain at that time. Presents for ongoing issues with fasciculations in the right anterior tibialis muscle and the right toes. Sometimes the spasms can be severe enough to cause him to wake up at night. No significant pain. But, he does state that the spasms are uncomfortable and are bothering him. States if he has 2 ounces of whiskey at night that this helps control the spasms. Otherwise, does not drink routinely. NALLELY LARSEN MD [facility] [place], [address], [facility] 06/25/2017 10:48:31 09/23/2017 text/html Mr. Rhodes is s/p right L4-[address] Larsen in November 2015. He has done very well following the surgery, but returned in June with complaint of muscles spasms in the right calf and toes. He follows up today to review the results of his MRI.He did try the gabapentin but it caused severe mood swings. His reports he was mean to everybody. He has stopped the medication. His muscle spasms continue to interfere with his sleep and rest. ESPINOZA VEGA PA-C [address] [place], [address], [facility] 09/27/2017 15:06:05
--- OUTSIDE RECORDS SUMMARY | 2025-07-02 12:23 | XMS_ITS | Patient Health Record ---
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 Stovall's office Referral Priority Routine Medications Medication SIG (Take, Route, Fr equency, Duration) Notes Start Date End Date Status Itraconazole 100 MG 2 capsules after a m eal Orally Once a day; Duration: 30 days 02/14/2025 Ac tive Sulindac 200 MG 1 tab(s) orally 2 ti mes a day as needed; Duration: 30 days Active Immunizations Vaccine Route Administration Date Status Comme [...] Status W/U Status Risk Notes Problem Anxiety (65004165) Anxiety (F41.9) Active confi rmed Problem Degeneration of lumbar intervertebral disc (18729343) Degenerative disc disease, lumbar (M51.36) Active confirmed Problem Restless legs (38797394) Restless legs (G25.81) Active confirmed Problem Adjustment insomnia (941128913) Adjustment insomnia (F51.02) Active confirmed Problem Contracture of palmar fascia (408854611) Dupuytren's contracture (M72.0) Active confirmed Vital Signs Heart Rate 69 /min 02/14/2025 Blood pressure diastolic 76 mm Hg 02/14/2025 Height 68 in 02/14/2025 Blood pressure systolic 134 mm Hg 02/14/2025 Weight 182 lbs 02/14/2025 BMI 27.67 kg/m2 02/14/2025 Encounters Encounter Location Date Provider Diagnosis [facility] [facility] [address] [place], [place] [phone] 07/30/2024 Tad Ramona Pain of left thumb M79.645 and Extensor tenosynovitis of thumb M65.949 [facility] [facility] [address] [place], [place] [id number] 02/14/2025 Tad Ramona 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 and BMI 27.0-27.9,adult Z68.27 [facility] [facility] [address] [place], [place] [phone] 10/08/2024 Tad Ramona [facility] [facility] [address] [place], [place] [id number] 10/11/2024 Tad Ramona [facility] [facility] [address] [place], [place] [id number] 03/07/2025 Tad Ramona Assessments Encounter Date Diagnosis (ICD Code) Assessment [...] Coverage Start Date Coverage End Date [employer] [facility] [address] [place], [place] [id number] MARIIA ROD Self - patient is the insured Medical (General) History Medical History History ICD Code Lumbar Disc Disease Surgical History Surgery Date(Month/Year) Back Discectomy 11/2015 Hospitalization History Reason Date(Month/Year)
--- NOTE | 2025-07-02 12:42 | ED_ITS ---
<Statement entered by Fred Stephen MD - 07/02/25 16:07> Fred Stephen MD: I was consulted by the TYRESE, and we discussed the complexity of the problems being addressed. I approved the treatment and management plan for this patient's care in the emergency department, thus performing a substantive portion of the medical decision making. Discharge Plan Disposition Patient Disposition: Home, Self-Care Prescriptions Prescriptions: New cephalexin 500 mg capsule 500 mg PO BID 7 Days Qty: 14 0RF No Action sulindac 200 mg tablet 200 mg PO BID Referrals Follow up/Referrals: Tad Panda MD [Primary Care Provider, Medical] - See instructions Activity Restrictions/Add. Instructions Additional Instructions/Restrictions: Today you were evaluated in the emergency department. Please have your sutures removed in 7 days. Please return to the ED for any worsening of your condition. Monitor for signs and symptoms of infection. Take your antibiotic as prescribed Clinical Impressions Clinical Impression: Laceration Instructions Patient Instructions: DI for Laceration Repair Print Language Print Language: Tajik Discharge ED Provider: Fred Stephen General Adult HPI General Chief complaint: Skin/Abscess/Foreign Body Stated complaint: AO 07/02 Lef hand lac on index finger Time Seen by Provider: 07/02/25 12:31 Mode of Arrival: Ambulatory Source of Information: Patient Description of Symptoms (Recalled from ER Triage Doc. by RN): laceration to the left hand with a filet knife. utd on tetanus shot. History of Present Illness HPI narrative: patient is a 50-year-old male who presents to the ED after sustaining a laceration on his right proximal index finger while cutting a deer. Patient has full range of motion of his hand, has a paper towel over the laceration upon arrival. He denies any additional injury. States that his tetanus is up-to-date within the past 5 years. Related Data Home Medications ?Medication ?Instructions ?Recorded ?Confirmed sulindac 200 mg tablet 200 mg PO BID Pain 12/09/24 12/09/24 Previous Rx's ?Medication ?Instructions ?Recorded cephalexin 500 mg capsule 500 mg PO BID 7 days #14 cap s 07/02/25 Allergies Allergy/AdvReac Type Severity Reaction Status Date / Time gabapentin AdvReac Other Verified 12/09/24 09:39 [facility] Disclaimer: The information contained in this section may have been updated after the patient was seen, as this information can be updated by other users. Medical History No significant past medical history Surgical History History of back surgery Family History Other No significant family history Social History Smoking Status: Never smoker alcohol intake: never substance use type: denies use current occupational status: other Travel in the last 8 weeks?: None household members: spouse housing: house caffeine: Yes Have you lived/traveled outside [place] in past 30 days?: No Contact w/someone who lives/traveled outside US past 30 days?: No Exposure to someone with infectious disease in past 14 days?: No Do you have a fever (greater than 100.4 F or 38 C)?: No Have you tested positive for COVID-19?: No Exposed to someone with COVID-19 in past 14 days?: No Do you have a sore throat?: No Do you have a cough?: No Do you have any weakness?: No Do you have any diarrhea?: No Are you experiencing any unusual bleeding?: No Do you have any muscle aches/pain?: No Do you have any abdominal pain?: No Are you experiencing loss of taste or smell?: No Other Medical History Have you received the Flu Vaccine for this season: No Have you received the Pneumonia Vaccine: No ROS Obtained: Yes Systems reviewed as appropriate & no additional complaints except as documented Physical Exam General General appearance: alert Eye Eye exam: Present PERRL Neck Neck exam: Present full ROM Respiratory Respiratory exam: Present normal lung sounds bilaterally Cardiovascular Cardiovascular exam: Present regular rate Neurological Exam Neurological exam: Present alert and oriented X3 Skin Skin exam: Present other (2 cm left index finger laceration, distal, full ROM, neurovascular status intact) Medical Decision Making Medical Records Screening: Per USPSTF and CDC recommendations, given the prevalence of disease in our region, it is our hospital?s policy to screen for HIV and viral Hepatitis for all patients aged 18 and over and those with ongoing risk factors. Keith Inquiry Pt receiving controlled substance: No Vital Signs: 07/02/25 12:18 07/02/25 13:16 Temperature 98.4 F 98.4 F Temperature Source Oral Pulse Rate 54 L Pulse Rate [Right] 79 Respiratory Rate 16 16 Blood Pressure 131/54 L Blood Pressure [Right Arm] 137/78 Blood Pressure Mean [Right Arm] 97 Blood Pressure Source Automatic Cuff Blood Pressure Position Supine 02 Sat by Pulse Oximetry 98 Oxygen Delivery Method Room Air Room Air Medical Decision Narrative: In summary, patient is a 50-year-old male who presents to the ED after sustaining a laceration on his right proximal index finger while cutting a deer. Patient has full range of motion of his hand, has a paper towel over the laceration upon arrival. He denies any additional injury. States that his tetanus is up-to-date within the past 5 years. Denies any loss of sensation, denies tingling. Upon initial evaluation patient is alert, oriented and cooperative. Physical exam remarkable for a 2 cm laceration on the left distal index finger. Sterile procedure performed. Wound cleaned with Hibiclens, injected 1% lidocaine, 2 mL around the laceration site. Cleaned with Betadine, I placed a 4 sutures of 4.0 Ethilon. Patient tolerated the procedure well. Nonadherent and Palomo wrap was used as a dressing. I discussed with patient to follow-up with PCP in 7 days to have sutures removed. We discussed signs and symptoms of infection to which patient verbalized understanding. Prescription for antibiotics was sent to the pharmacy. Patient was agreeable and ambulatory from ED without difficulty. Critical Care Critical Care Time Critical Care Time: No
[2025-07-02 13:16] VITALS: BP 131/54; PULSE 54; RESP 16; TEMP 36.9; O2SAT 98
== END 2025-07-02 13:18 | disposition home or self-care (01) ==
PROVIDERS: Emergency Provider Emergency Medicine; PCP Family Medicine
DX: S61.412A Laceration without foreign body of left hand, initial encounter (principal); W26.0XXA Contact with knife, initial encounter
CPT/HCPCS: 12001; 99282; 99283